=== PATIENT | female | born 1955 | race Caucasian/White ===

== ENCOUNTER 2024-07-12 05:07 | Inpatient (IN) | payer MEDICARE, MEDICAID, SELFPAY ==
[2024-07-12] VITALS (19 sets, daily range): BP systolic 107–164; BP diastolic 48–82; PULSE 71–101; RESP 16–93; TEMP 36.7–38.2; O2SAT 92–100; BMI 17.7; BMI 17.2; BMI 16.0
--- NOTE | 2024-07-12 05:28 | PD.EDRME ---
Rapid Medical Screening Exam RME Arrival date/time: 07/12/24 05:07 68 yo f present to ED for c/o of feeling sick for 10 days. I have greeted and performed a focused initial assessment of this patient. A comprehensive ED assessment and evaluation of the patient, analysis of all test results, and completion of the medical decision making process will be conducted by additional ED providers. Chief Complaint: General Adult/Misc Complain Time Seen by Provider: 07/12/24 05:21 Vital signs: Vital Signs Temperature 98.2 F 07/12/24 05:15 Respiratory Rate 19 07/12/24 05:15 Blood Pressure 162/52 H 07/12/24 05:15
--- NOTE | 2024-07-12 05:29 | XR_ITS ---
Examination: PA lateral chest 2 views Technique: Upright PA lateral chest 2 views Exam date and time: July 06 16,025 0539 hrs. 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
--- NOTE | 2024-07-12 07:04 | PC.NURSE ---
REPORT RECEIVED AT THIS TIME; PER REPORT, PT BIBA WITH INITIAL C/O WANTING TO GET AWAY FROM HOME. UPON TRIAGE, SHE REPORTED HEARING VOICES. PT SEEN BY PROVIDER AND NEEDED A ROOM DUE TO XRAY RESULTS. PT CONNECTED TO MONITORS AT THIS TIME.
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
--- NOTE | 2024-07-12 07:24 | PC.NURSE ---
RT CALLED AND MADE AWARE OF MD'S ORDER FOR BREATHING TREATMENT AT THIS TIME. PER RT, WILL GO SEE PT SOON.
[2024-07-12 07:25] LABS: Lactate (Lactic Acid) 1.3 mMol/L (0.4-2.0)
[2024-07-12 07:28] LABS: Basophils # (Auto) 0.1 Thou/mm3 (0.0-0.2); Basophils % (Auto) 1 % (0-2.5); Eosinophils # (Auto) 0.1 Thou/mm3 (0.0-0.5); Eosinophils % (Auto) 1 % (0-10); Hematocrit 45.9 % (36.0-46.0); Hemoglobin 14.3 g/dL (12.0-16.0); Immature Granulocytes % (Auto) 1 % (0-0); Immature Granulocytes Auto 0.09 Thou/mm3 (0.00-0.00); Lymphocytes # (Auto) 0.6 Thou/mm3 (1.0-4.8); Lymphocytes % (Auto) 5 % (10-50); Mean Corpuscular HGB Conc 31.2 g/dl (31.0-37.0); Mean Corpuscular Hemoglobin 28.7 pg (25.0-35.0); Mean Corpuscular Volume 92 fL (80-100); Monocytes # (Auto) 0.7 Thou/mm3 (0.0-0.8); Monocytes % (Auto) 6 % (0-12); Neutrophils # (Auto) 10.7 Thou/mm3 (1.8-7.7); Neutrophils % (Auto) 87 % (37-80); Nucleated Red Blood Cell % 0 /100 WBC (0); Platelet Count 232 Thou/mm3 (140-440); RDW Standard Deviation 53.9 fL (36.4-46.3); Red Blood Count 4.98 Miln/mm3 (4.00-5.20); White Blood Count 12.2 Thou/mm3 (3.6-11.0)
[2024-07-12 07:35] LABS: Base Excess, Venous 4 (-3-3); O2 Saturation, Venous 81 % (96-97); PCO2, Venous 43 mmHg (36-56); PO2, Venous 39 mmHg (15-58); pH, Venous 7.44 (7.33-7.66)
[2024-07-12] MEDS: IPRATROPIUM RT 0.5 MG/ 2.5 ML NEBU INH (07:36)
[2024-07-12] MEDS: ALBUTEROL RT 2.5 MG/0.5 ML NEBU 10 MG INH (07:36)
[2024-07-12 07:54] LABS: Alanine Aminotransferase 27 U/L (10-49); Albumin, Serum 4.5 gm/dL (3.4-4.8); Albumin/Globulin Ratio 1.2 (1.2-2.2); Alkaline Phosphatase 147 U/L (46-116); Anion Gap 7 (7-16); Aspartate Amino Transferase 17 U/L (0-34); BUN/Creatinine Ratio 18 Ratio (12-20); Bilirubin,Total 0.5 mg/dL (0.3-1.2); Blood Urea Nitrogen 20 mg/dL (9-23); Carbon Dioxide 31.7 mMol/L (20.0-31.0); Chloride 95 mMol/L (98-107); Creatinine (Component) 1.1 mg/dL (0.6-1.3); Estimated Creatinine Clearance 38.6 mL/min (>60); Globulin 3.9 gm/dL (2.3-3.5); Glucose 106 mg/dL (74-106); Magnesium 2.1 mg/dL (1.6-2.6); Osmolality,Calculated 270 (275-295); Potassium 4.2 mMol/L (3.4-5.1); Procalcitonin 0.32 ng/ml (0.0-0.49); Sodium 134 mMol/L (136-145); Total Protein 8.4 gm/dL (5.7-8.2); Troponin I < 0.020 ng/mL (0.0-0.045); eGFR 55 See Note
[2024-07-12 08:03] LABS: B-Type Natriuretic Peptide 75 pg/mL (0-100)
[2024-07-12] MEDS: MethylPREDNISolone SOD SUCC 62.5 MG/ML 2ML VIAL 125 MG IVP (08:10)
[2024-07-12] MEDS: cefTRIAXone/D5w 1gm IV premix 50 ML IV (08:12)
[2024-07-12] MEDS: AZITHROMYCIN INJ 500 MG in SODIUM CHLORIDE 0.9% 250 ML 250 ML 250 MG IV (09:08)
--- NOTE | 2024-07-12 09:13 | XR_ITS ---
Examination: CT chest with intravenous contrast CT abdomen with intravenous contrast CT pelvis with intravenous contrast 2-D coronal and sagittal reconstructions Time of exam: July 12, 2024 1001 hrs. Indications: Difficulty breathing this week, extensive infiltrate in the right lung and masslike area in the right upper lobe on chest x-ray today CTDI: vol (mGy) : 8.47 DLP: (mGycm): 330 Technique: Multiple axial images of the chest, abdomen and pelvis with intravenous contrast, 3.0 mm slice thickness. Images obtained post intravenous injection Isovue 370 60 cc. 2-D sagittal and coronal reconstructions. Low dose protocols were performed. One or more of the following dose reduction techniques were used; automated exposure control, adjustment of the mA and/or KV according to patient size, use of iterative reconstruction technique. Findings: No thoracic aortic aneurysm dilatation Pulmonary artery segments are not enlarged No filling defects in the pulmonary arteries on this non-CTA study Extensive dense right lung opacity most consistent with pneumonia Discrete pulmonary mass in the right upper lobe is not depicted Nodular opacities to a lesser extent throughout the left lung Hyperexpansion No visualized splenic lesion 10 mm low-density posterior right lobe liver lesion image 127 Multiple gallstones Gallbladder wall does not appear thickened Common bile duct 7 mm no stones noted Severely atrophic right kidney with focal areas of probable edema No hydronephrosis or ureteral calculi Aorta normal size No bowel obstruction No pericecal inflammatory change No diverticulitis Minimal thickening of the urinary bladder wall No pelvic mass Prominent osteopenia with kyphosis dorsal spine secondary to chronic osteoporotic wedging dorsal vertebral bodies Advanced left hip osteoarthritis Impression: COPD Bilateral pneumonia, extensive dense lung opacities in the right upper lobe, although this may represent severe pneumonia, underlying pulmonary mass cannot be excluded Consider bronchoscopy follow-up Recommend follow-up CT chest imaging to document clearing of the severe parenchymal disease in the right upper lobe Recommend hepatic sonography to assess the 2 mm low-density lesion posterior right lobe liver Cholelithiasis, negative for cholecystitis Common bile duct 7 mm no stones Severely atrophic right kidney, suspicious for right pyelonephritis, clinical correlation advised No bowel obstruction Mild cystitis pattern Advanced left hip osteoarthritis
[2024-07-12] MEDS: ACETAMINOPHEN 500 MG TABLET 1000 MG PO (10:45)
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
[2024-07-12 11:10] LABS: Collection Type, Urine Clean Catch
--- NOTE | 2024-07-12 11:20 | PC.NURSE ---
PER DR. GOLD, PT OK TO EAT AT THIS TIME. PT GIVEN TURKEY SANDWICH, ELIZA CRACKERS, A CUP OF WATER, AND A ORANGE JUICE BOX AT THIS TIME.
[2024-07-12 11:53] LABS: Bilirubin,Urine Negative (Negative); Blood,Urine Trace (Negative); Clarity,Urine Clear (Clear/Hazy); Color,Urine Yellow (Lt Yel-Yel); Glucose, Urine Negative (Negative); Ketones,Urine Negative (Negative); Leukocyte Esterase,Urine Positive (Negative); Nitrite,Urine Negative (Negative); PH,Urine 6.5 (5.0-7.0); Protein,Urine 2+ (Neg - Trace); RBC,Urine 7 /hpf (0-3); Specific Gravity,Urine 1.034 (1.001-1.035); Squamous Epithelial Cell,Urine 2 /hpf (0-5); Urobilinogen,Urine Negative mg/dL (0.0-1.0); WBC,Urine 10 /hpf (0-5)
[2024-07-12] MEDS: SODIUM CHLORIDE 0.9% 1000 ML 1,000 ML 999 ML IV (12:40)
[2024-07-12] MEDS: SODIUM CHLORIDE 0.9% 1000 ML 1,000 ML 150 ML IV (12:40)
[2024-07-12] MEDS: SODIUM CHLORIDE 0.9% 1000 ML 1,000 ML 75 ML IV (13:32)
--- NOTE | 2024-07-12 14:13 | PC.RT ---
Sputum- patient refusing to leave a sample. Per patient she does not want to be bothered. Nurse aware.
--- NOTE | 2024-07-12 14:23 | ESHP_ITS ---
<Statement entered by Latonia Lock MD - 07/18/24 13:40> I reviewed above note and agree with findings and plans. I have also personally examined the patient with medicine team and went over assessment and plan with medical team including promotions intern and resident physician. Documentation for date of: 07/12/24 HPI History of Present Illness History of present illness: Ms. Hameed is a 68-year-old female with past medical history significant for asthma, hypertension and history of leukemia presents to the ED complaining of flulike symptoms for the past 2 weeks. Of note patient is a poor historian. patient states she lives with other people in the same house (not a senior care) where everyone is responsible further on food and living. Patient complains of fever, chills and productive cough for the past 2 weeks which has progressively worsened. Patient is not on home oxygen. Patient states she also has not had much of food in the last several weeks because she was unable to find food. Patient complains of pleuritic chest pain with inspiration. As patient is a poor historian she is unable to confirm if she has been having hemoptysis for the past 2 years or the last hemoptysis for her was 2 years ago. patient also has been feeling nauseous but denies any vomiting, abdominal pain or diarrhea. Patient states she also has had off and on dysuria for several months but denies any hematuria . Patient states that 2 years ago she was diagnosed with colon cancer but never seek treatments she also states she has history of leukemia since the age of 33 and refuses treatment as well .patient is aware of the lung mass but is unsure of the liver mass found on CT on 01/27/2021. Patient denies any recent weight loss but attributes to her body habitus to not eating enough because she cannot find food. ED course: In the ED initial vitals include blood pressure 162/52, respirations 22 pulse 96. WBC 12.2, sodium 134, urinalysis showed leukocyte esterase positive, urine RBC 7, urine WBC 10 Chest x-ray: COPD, Diffuse significant bilateral pneumonia, Mass in the right upper lobe contiguous with the right hilar region at least 5cm Chest/abdomen/pelvis CT: COPD, Bilateral pneumonia, extensive dense lung opacities in the right upper lobe, although this may represent severe pneumonia, underlying pulmonary mass cannot be excluded severe parenchymal disease in the right upper lobe 2 mm low-density lesion posterior right lobe liver, Cholelithiasis, negative for cholecystitis, Common bile duct 7 mm no stones, Severely atrophic right kidney, suspicious for right pyelonephritis, Mild cystitis pattern, Advanced left hip osteoarthritis -In the ED patient received Solu-Medrol 125 Mg x 1, albuterol 10 Mg inhaler, ipratropium 0.5 mg inhaler, ceftriaxone 1 g x 1, azithromycin 500 Mg x 1 3L NS PMH: HTN, Asthma, leukemia (unknown type and confirmation) PSH: NKSH SH: Patient denies alcohol use, patient smokes meth and last meth use was approximately 1 month ago, former smoker (last cigarette was a year ago) Home Meds: Amlodipine 10 Mg daily and albuterol inhaler Review of Systems Review of Systems Systems Reviewed: All systems reviewed, normal except as documented Exam Vital Signs Temp Pulse Resp BP Pulse Ox O2 Del Method O2 Flow Rate 100.0 F 91 19 132/54 H 92 L Nasal Cannula 2 07/12/24 12:06 07/12/24 12:06 07/12/24 12:06 07/12/24 12:06 07/12/24 12:06 07/12/24 12:06 07/12/24 12:06 Narrative Exam GENERAL: A&Ox3 . Awake, Not in acute distress NEURO: no focal neurological deficits HEENT: Atraumatic, Normocephalic. mucous membranes moist. Eyes open, symmetrical, & clear HEART: Normal Heart Sounds LUNGS: decreased breath sounds with bilateral faint wheezing ABDOMEN: soft, non-distended, non-tender, bowel sounds heard, no guarding or rebound tenderness SKIN: severely dry scaly skin bilaterally on lower extremities EXTREMITIES: No edema, tenderness, able to move all 4 extremities, pedal pulses palpated Results: Labs 07/12/24 07:06 07/13/24 06:24 Labs: Short CBC 07/12/24 Range/Units 07:06 WBC 12.2 H (3.6-11.0) Thou/mm3 Hgb 14.3 (12.0-16.0) g/dL Hct 45.9 (36.0-46.0) % Plt Count 232 (140-440) Thou/mm3 BMP 07/12/24 07:06 Sodium 134 L Potassium 4.2 Chloride 95 L Carbon Dioxide 31.7 H BUN 20 Creatinine 1.1 Glucose 106 Calcium 10.0 Cardiac Enzymes 07/12/24 Range/Units 07:06 Troponin I < 0.020 (0.0-0.045) ng/mL Liver Function 07/12/24 Range/Units 07:06 Total Bilirubin 0.5 (0.3-1.2) mg/dL AST 17 (0-34) U/L ALT 27 (10-49) U/L Alkaline Phosphatase 147 H (46-116) U/L Albumin 4.5 (3.4-4.8) gm/dL Urine 07/12/24 Range/Units 10:41 Urine Color Yellow (Lt Yel-Yel) Urine Clarity Clear (Clear/Hazy) Urine pH 6.5 (5.0-7.0) Ur Specific [place] 1.034 (1.001-1.035) Urine Protein 2+ A (Neg - Trace) Urine Glucose (UA) Negative (Negative) ABG Interpretation ABG results: 07/12/24 07:06 VBG pH 7.44 VBG pCO2 43 VBG pO2 39 VBG Base Excess 4 H Quality Measures Quality Measures none Advance care planning discussed with:: patient Medications Home Medications and Allergies Home Medications ?Medication ?Instructions ?Recorded ?Confirmed ?Type fluticasone propionate 110 2 puff inhalation BID PRN 02/14/20 01/28/21 History mcg/actuation HFA aerosol inhaler Shortness Of Breath Or Wheezing (Flovent HFA) montelukast 10 mg tablet 10 mg PO QPM 02/14/20 01/28/21 History Allergies Allergy/AdvReac Type Severity Reaction Status Date / Time Penicillins Allergy Severe HIVES Verified 07/12/24 05:22 Visit Medications Acetaminophen (Acetaminophen 325 Mg Tablet) 650 mg PO Q6H PRN PRN Reason: Fever >101.5 Stop: 08/11/24 13:23 Albuterol/Ipratropium (Albuterol/Ipratropium (Duoneb) Rt Mariam 3 Ml Nebu) 3 ml INH Q6HRRT LORRI Stop: 08/11/24 18:59 Enoxaparin Sodium (Enoxaparin Sod Inj 40 Mg/0.4 Ml Syringe) 40 mg SC QDAY LORRI Stop: 07/27/24 08:59 Doxycycline Hyclate 100 mg/ (Sodium Chloride) 100 mls @ 100 mls/hr IV BID LORRI Stop: 07/19/24 20:59 Ceftriaxone Sodium/Dextrose (Rocephin/D5w 1gm Iv Premix) 50 mls @ 100 mls/hr IV QDAY [facility] Stop: 07/20/24 08:59 Ondansetron HCl (Ondansetron Inj 2 Mg/Ml Inj 2 Ml) 4 mg IV Q6H PRN; Protocol PRN Reason: NAUSEA OR VOMITING Stop: 08/11/24 13:23 Pantoprazole Sodium (Pantoprazole 40 Mg Tablet) 40 mg PO QDAY [facility] Stop: 08/12/24 08:59 Discontinued Medications Acetaminophen (Acetaminophen 500 Mg Tablet) 1,000 mg PO X1 ONE Stop: 07/12/24 10:34 Last Admin: 07/12/24 10:45 Dose: 1,000 mg Albuterol (Albuterol Rt 2.5 Mg/0.5 Ml Nebu) 10 mg INH X1 ONE Stop: 07/12/24 07:20 Last Admin: 07/12/24 07:36 Dose: 10 mg Albuterol/Ipratropium (Albuterol/Ipratropium (Duoneb) Rt Mariam 3 Ml Nebu) 3 ml INH Q6H [facility] Stop: 08/11/24 13:44 Ceftriaxone Sodium/Dextrose (Rocephin/D5w 1gm Iv Premix) 50 mls @ 100 mls/hr IV X1 ONE Stop: 07/12/24 07:50 Last Infusion: 07/12/24 09:00 Dose: Infused Azithromycin 500 mg/ Sodium (Chloride) 250 mls @ 250 mls/hr IV X1 ONE Stop: 07/12/24 08:20 Last Infusion: 07/12/24 10:40 Dose: Infused Sodium Chloride (Ns) 1,000 mls @ 150 mls/hr IV .[id number] ONE Stop: 07/12/24 19:14 Last Infusion: 07/12/24 13:31 Dose: 0 mls/hr Sodium Chloride (Ns) 1,000 mls @ 999 mls/hr IV .Q1H1M ONE Stop: 07/12/24 13:35 Last Admin: 07/12/24 12:40 Dose: 999 mls/hr Sodium Chloride (Ns) 1,000 mls @ 75 mls/hr IV .[id number] LORRI Stop: 08/11/24 13:29 Last Admin: 07/12/24 13:32 Dose: 75 mls/hr Ipratropium [place] (Ipratropium Rt 0.5 Mg/ 2.5 Ml Nebu) 0.5 mg INH X1 ONE Stop: 07/12/24 07:20 Last Admin: 07/12/24 07:36 Dose: 0.5 mg Methylprednisolone Sodium Succinate (Methylprednisolone Sod Succ 62.5 Mg/Ml 2ml Vial) 125 mg IVP X1 ONE Stop: 07/12/24 07:20 Last Admin: 07/12/24 08:10 Dose: 125 mg Sodium Chloride (Sodium Chloride Rt 10% 15 Ml Nebu) 5 ml INH X1 ONE Stop: 07/12/24 13:36 Assessment & Plan Plan Ms. Hameed is a 68-year-old female with past medical history significant for asthma, hypertension and history of leukemia presents to the ED complaining of flulike symptoms for the past 2 weeks.Patient complains of fever, chills and productive cough for the past 2 weeks which has progressively worsened. Patient is not on home oxygen. Patient states she also has not had much of food in the last several weeks because she was unable to find food. Patient complains of pleuritic chest pain with inspiration. As patient is a poor historian she is unable to confirm if she has been having hemoptysis for the past 2 years or the last hemoptysis for her was 2 years ago. patient also has been feeling nauseous but denies any vomiting, abdominal pain or diarrhea. Patient states she also has had off and on dysuria for several months but denies any hematuria . Patient states that 2 years ago she was diagnosed with colon cancer but never seek treatments she also states she has history of leukemia since the age of 33 and refuses treatment as well .patient is aware of the lung mass but is unsure of the liver mass found on CT on 01/27/2021. Patient denies any recent weight loss but attributes to her body habitus to not eating enough because she cannot find food. #Acute hypoxic respiratory failure #Sepsis secondary to #Bilateral pneumonia #Hemoptysis-unclear # Concern for tuberculosis -SIRS 3/4- tachycardia, tachypnea and leukocytosis -In the ED patient is requiring 2 L of oxygen saturating between 87 and 88% -Patient has a cough and unsure if she currently has hemoptysis for the last 2 years or if the last hemoptysis episode was 2 years ago patient is a poor historian -Patient complains of productive cough, weight loss and fever -Patient lives in a senior care situation -Patient is given 3 L of IV fluid in the ED Plan: -Patient is placed in airborne isolation precaution -AFB, QuantiFERON, PPD skin and sputum culture were ordered -Blood cultures are ordered -Cocci IgM ordered -Antibiotics coverage with doxycycline and ceftriaxone started 07/12- -IV fluids given #COPD exacerbation in the setting of #History of asthma -Patient has history of asthma and uses albuterol inhaler at home -Patient has faint wheezing on auscultation -Patient denies any smoking history but currently is requiring 2 L of oxygen Plan: -Supplemental oxygen as needed, keep O2 saturation above 88% -DuoNebs every 6 hours ordered #Acute pyelonephritis #Cystitis #Pyuria #hematuria -Pt complains of dysuria for several weeks, denies any abdominal pain or difficulty urinating -UA is postive for leukocyte esterase, urine RBC 7, urine WBC 10, urine blood trace CT: Minimal thickening of the urinary bladder wall, Severely atrophic right kidney, suspicious for right pyelonephritis Plan: -Antibiotics coverage with ceftriaxone 07/12- #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 bilaterally on lower extremities -Patient is advised to keep it moisturized #Primary hypertension Patient states her home medication includes amlodipine 10 mg daily however she stopped taking it several months ago -Will continue to monitor blood pressure and will resume antihypertensive if blood pressure remains elevated # other CT and Xray findings -Liver mass: 10 mm low-density posterior right lobe liver lesion image 127 -Lung mass: Mass in the right upper lobe contiguous with the right hilar region at least 5cm -Enlarged common bile duct: Common bile duct 7 mm no stones noted -Cholelithiasis: Cholelithiasis, negative for cholecystitis -Advanced osteoarthritis of the right hip Plan: -Patient is advised to follow-up outpatient with primary care physician #substance use disorder -Patient endorses to smoking meth last meth use was approximately a month ago -Counseled patient against drug use # Unconfirmed history of colon cancer and leukemia -Patient states she has a history of colon cancer and leukemia but it is unverified on chart review -Patient also declined receiving any treatments for either one of them Health Maintenance Disposition: Medsurg or telemetry DVT Prophylaxis: enoxaparin 40mg Qdaily GI Prophylaxis: Pantoprozol-40 IV Qday Diet: regular Lines: Peripheral lines Code status: Full Assessment and plan discussed with my attending physician Dr. Ashvin Vaz (PGY-1)- Internal medicine resident
--- NOTE | 2024-07-12 18:28 | PC.NURSE ---
MERCHANDISING SPECIALIST CALLED AT THIS TIME; UNAVAILABLE TO PERFORM TB PPD SKIN TEST AT THIS TIME.
[2024-07-12] MEDS: TUBERCULIN PPD INJ 5 UNIT/0.1 ML DOSE ID (19:27)
[2024-07-12] MEDS: DOXYCYCLINE INJ 100 MG in SODIUM CHLORIDE 0.9% (P) 100 ML IV (21:20)
[2024-07-13] VITALS (9 sets, daily range): BP systolic 98–151; BP diastolic 61–79; PULSE 69–99; RESP 17–21; TEMP 36.1–37.3; O2SAT 92–100; BMI 14.0
[2024-07-13] MEDS: ALBUTEROL/IPRATROPIUM (Duoneb) RT SOL 3 ML NEBU INH ×3 (01:35→12:39)
[2024-07-13 01:42] LABS: Cult AFB Sendout- Sputum* See Sep Rpt
[2024-07-13 06:37] LABS: Quantiferon-TB* See Sep Rpt
[2024-07-13 07:08] LABS: Alanine Aminotransferase 29 U/L (10-49); Albumin, Serum 4.2 gm/dL (3.4-4.8); Albumin/Globulin Ratio 1.1 (1.2-2.2); Alkaline Phosphatase 133 U/L (46-116); Anion Gap 9 (7-16); Aspartate Amino Transferase 22 U/L (0-34); BUN/Creatinine Ratio 23 Ratio (12-20); Bilirubin,Total 0.2 mg/dL (0.3-1.2); Blood Urea Nitrogen 28 mg/dL (9-23); Calcium 9.4 mg/dL (8.3-10.6); Calcium (Corrected) 9.4 mg/dL (8.5-10.1); Carbon Dioxide 28.6 mMol/L (20.0-31.0); Chloride 100 mMol/L (98-107); Creatinine (Component) 1.2 mg/dL (0.6-1.3); Globulin 3.7 gm/dL (2.3-3.5); Glucose 93 mg/dL (74-106); Magnesium 2.1 mg/dL (1.6-2.6); Osmolality,Calculated 281 (275-295); Phosphorous 3.2 mg/dL (2.4-5.1); Potassium 4.8 mMol/L (3.4-5.1); Sodium 138 mMol/L (136-145); Total Protein 7.9 gm/dL (5.7-8.2); eGFR 49 See Note
[2024-07-13 09:06] LABS: Basophils % (Auto) 0 % (0-2.5); Eosinophils % (Auto) 0 % (0-10); Hematocrit 44.2 % (36.0-46.0); Hemoglobin 13.4 g/dL (12.0-16.0); Immature Granulocytes % (Auto) 1 % (0-0); Immature Granulocytes Auto 0.12 Thou/mm3 (0.00-0.00); Lymphocytes # (Auto) 0.6 Thou/mm3 (1.0-4.8); Lymphocytes % (Auto) 4 % (10-50); Mean Corpuscular HGB Conc 30.3 g/dl (31.0-37.0); Mean Corpuscular Hemoglobin 28.1 pg (25.0-35.0); Mean Corpuscular Volume 93 fL (80-100); Monocytes # (Auto) 0.4 Thou/mm3 (0.0-0.8); Monocytes % (Auto) 3 % (0-12); Neutrophils # (Auto) 12.7 Thou/mm3 (1.8-7.7); Neutrophils % (Auto) 92 % (37-80); Nucleated Red Blood Cell % 0 /100 WBC (0); Platelet Count 243 Thou/mm3 (140-440); RDW Standard Deviation 55.2 fL (36.4-46.3); Red Blood Count 4.77 Miln/mm3 (4.00-5.20); White Blood Count 13.8 Thou/mm3 (3.6-11.0)
[2024-07-13 09:20] LABS: Cult AFB Sendout- Sputum* See Sep Rpt
[2024-07-13] MEDS: PANTOPRAZOLE 40 MG TABLET PO (09:49)
[2024-07-13] MEDS: ENOXAPARIN SOD INJ 40 MG/0.4 ML SYRINGE SC (09:49)
[2024-07-13] MEDS: cefTRIAXone/D5w 1gm IV premix 50 ML IV (09:49)
[2024-07-13] MEDS: DOXYCYCLINE INJ 100 MG in SODIUM CHLORIDE 0.9% (P) 100 ML IV ×2 (10:51→21:05)
--- NOTE | 2024-07-13 11:31 | PC.SS ---
Follow up note: On IV antibiotic. TB work up pending. Pt will return home upon dc.
--- NOTE | 2024-07-13 13:20 | PC.PT ---
Attempt to initiate PT evaluation, but patient refused inspite of education of the importance of doing PT but patient still refused. Will try again tomorrow.
[2024-07-13 14:51] LABS: Cocci Serology, IgM Positive (Negative)
[2024-07-13 14:53] LABS: Cocid Sro, CF/ID (UCD) NO CHG* See Sep Rpt
[2024-07-13] MEDS: FLUCONAZOLE 100 MG TABLET 400 MG PO (15:28)
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
[2024-07-14] VITALS (8 sets, daily range): BP systolic 120–157; BP diastolic 56–74; PULSE 67–88; RESP 17–24; TEMP 36.4–37.1; O2SAT 94–100; BMI 15.0
[2024-07-14] MEDS: ALBUTEROL/IPRATROPIUM (Duoneb) RT SOL 3 ML NEBU INH (06:35)
[2024-07-14 06:42] LABS: Basophils % (Auto) 0 % (0-2.5); Eosinophils % (Auto) 0 % (0-10); Hematocrit 43.7 % (36.0-46.0); Hemoglobin 13.4 g/dL (12.0-16.0); Immature Granulocytes % (Auto) 2 % (0-0); Immature Granulocytes Auto 0.17 Thou/mm3 (0.00-0.00); Lymphocytes # (Auto) 1.2 Thou/mm3 (1.0-4.8); Lymphocytes % (Auto) 12 % (10-50); Mean Corpuscular HGB Conc 30.7 g/dl (31.0-37.0); Mean Corpuscular Hemoglobin 28.5 pg (25.0-35.0); Mean Corpuscular Volume 93 fL (80-100); Monocytes # (Auto) 0.5 Thou/mm3 (0.0-0.8); Monocytes % (Auto) 5 % (0-12); Neutrophils # (Auto) 8.8 Thou/mm3 (1.8-7.7); Neutrophils % (Auto) 82 % (37-80); Nucleated Red Blood Cell % 0 /100 WBC (0); Platelet Count 267 Thou/mm3 (140-440); RDW Standard Deviation 55.2 fL (36.4-46.3); Red Blood Count 4.71 Miln/mm3 (4.00-5.20); White Blood Count 10.8 Thou/mm3 (3.6-11.0)
[2024-07-14 07:20] LABS: Alanine Aminotransferase 46 U/L (10-49); Albumin, Serum 3.9 gm/dL (3.4-4.8); Albumin/Globulin Ratio 1.1 (1.2-2.2); Alkaline Phosphatase 131 U/L (46-116); Anion Gap 10 (7-16); Aspartate Amino Transferase 43 U/L (0-34); BUN/Creatinine Ratio 23 Ratio (12-20); Bilirubin,Total 0.2 mg/dL (0.3-1.2); Blood Urea Nitrogen 25 mg/dL (9-23); Calcium 9.3 mg/dL (8.3-10.6); Calcium (Corrected) 9.4 mg/dL (8.5-10.1); Carbon Dioxide 27.2 mMol/L (20.0-31.0); Chloride 101 mMol/L (98-107); Creatinine (Component) 1.1 mg/dL (0.6-1.3); Globulin 3.4 gm/dL (2.3-3.5); Glucose 80 mg/dL (74-106); Magnesium 1.8 mg/dL (1.6-2.6); Osmolality,Calculated 279 (275-295); Phosphorous 3.4 mg/dL (2.4-5.1); Sodium 138 mMol/L (136-145); Total Protein 7.3 gm/dL (5.7-8.2); eGFR 55 See Note
--- NOTE | 2024-07-14 08:52 | PC.NURSE ---
[facility] down[facility] on 07/14/24 from 0100 to 0700.
--- NOTE | 2024-07-14 10:00 | PC.NURSE ---
[facility]24 from 0100 to 0700.
[2024-07-14] MEDS: FLUCONAZOLE 100 MG TABLET 400 MG PO (10:18)
[2024-07-14] MEDS: PANTOPRAZOLE 40 MG TABLET PO (10:19)
[2024-07-14] MEDS: DOXYCYCLINE INJ 100 MG in SODIUM CHLORIDE 0.9% (P) 100 ML IV ×2 (10:19→21:32)
[2024-07-14] MEDS: ENOXAPARIN SOD INJ 40 MG/0.4 ML SYRINGE SC (10:19)
[2024-07-14] MEDS: cefTRIAXone/D5w 1gm IV premix 50 ML IV (10:19)
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
[2024-07-14] MEDS: ALBUTEROL/IPRATROPIUM (Duoneb) RT SOL 3 ML NEBU 5 ML INH ×2 (13:00→21:03)
[2024-07-14] MEDS: guaiFENesin/DM 10 ML UDC PO ×2 (13:03→21:32)
--- NOTE | 2024-07-14 16:42 | ESPR_ITS ---
Documentation for date of: 07/14/24 Subjective Subjective Interval history: 07/14: no acute overnight events. pt is seen and examined at bedside. Pt is in airborne precaution isolation for TB rule out. pt is resting, somnolent. Patient is saturating well on 3 L of oxygen via nasal cannula. Patient has a new productive cough which she states is because of her asthma flare denies any fever or chills. Patient denies any nausea vomiting or chest pain. Patient states she is just very tired and sleepy. Exam Vital Signs Temp Pulse Resp BP Pulse Ox O2 Del Method O2 Flow Rate 98.8 F 73 18 124/62 96 Nasal Cannula 2 07/14/24 16:00 07/14/24 16:00 07/14/24 16:00 07/14/24 16:29 07/14/24 16:00 07/14/24 16:00 07/14/24 16:00 Narrative Exam GENERAL: A&Ox3 . Awake, Not in acute distress NEURO: no focal neurological deficits HEENT: Atraumatic, Normocephalic. mucous membranes moist. Eyes open, symmetrical, & clear HEART: Normal Heart Sounds LUNGS: bilaterallly wheezing on auscultation ABDOMEN: soft, non-distended, non-tender, bowel sounds heard, no guarding or rebound tenderness SKIN: severely dry scaly skin bilaterally on lower extremities EXTREMITIES: No edema, tenderness, able to move all 4 extremities, pedal pulses palpated Objective Labs 07/15/24 08:11 07/15/24 08:11 Labs: Laboratory Results - last 24 hr 07/14/24 05:24 WBC 10.8 RBC 4.71 Hgb 13.4 Hct 43.7 MCV 93 MCH 28.5 MCHC 30.7 L RDW Std Deviation 55.2 H Plt Count 267 Neut % (Auto) 82 H Lymph % (Auto) 12 [place] % (Auto) 5 Eos % (Auto) 0 Baso % (Auto) 0 Neut # (Auto) 8.8 H Lymph # (Auto) 1.2 [place] # (Auto) 0.5 Eos # (Auto) 0.0 Baso # (Auto) 0.0 Immature Gran # (Auto) 0.17 H Absolute Nucleated RBC 0.00 Immature Gran % 2 H Nucleated RBC % 0 Sodium 138 Potassium 4.0 D Chloride 101 Carbon Dioxide 27.2 Anion Gap 10 BUN 25 H Creatinine 1.1 Estim Creat Clear Calc 36.0 L eGFR 55 L BUN/Creatinine Ratio 23 H Glucose 80 Calculated Osmolality 279 Calcium 9.3 Corrected Calcium 9.4 Phosphorus 3.4 Magnesium 1.8 Total Bilirubin 0.2 L AST 43 H ALT 46 Alkaline Phosphatase 131 H Total Protein 7.3 Albumin 3.9 Globulin 3.4 Albumin/Globulin Ratio 1.1 L ABG Interpretation ABG results: 07/12/24 07:06 VBG pH 7.44 VBG pCO2 43 VBG pO2 39 VBG Base Excess 4 H Quality Measures Quality Measures none Advance care planning discussed with:: patient Assessment & Plan Assessment Current Active Medications: Generic Name Dose Route Start Last Admin Trade Name Freq PRN Reason Stop Dose Admin Acetaminophen 650 mg 07/13/24 11:58 Acetaminophen 325 Mg Tablet PO 08/11/24 13:23 Q6H PRN Fever >100.3 Albuterol/Ipratropium 5 ml 07/14/24 13:00 07/14/24 13:00 Albuterol/Ipratropium (Duoneb) Rt Mariam 3 Ml Nebu INH 08/13/24 12:59 5 ml Q6HRRT LORRI Administration Amlodipine Besylate 10 mg 07/14/24 10:45 07/14/24 13:11 Amlodipine Besylate 5 Mg Tablet PO 08/13/24 10:44 Not Given QDAY LORRI Enoxaparin Sodium 40 mg 07/13/24 09:00 07/14/24 10:19 Enoxaparin Sod Inj 40 Mg/0.4 Ml Syringe SC 07/27/24 08:59 40 mg QDAY LORRI Administration Fluconazole 400 mg 07/13/24 15:15 07/14/24 10:18 Fluconazole 100 Mg Tablet PO 07/20/24 15:14 400 mg QDAY LORRI Administration Guaifenesin/Dextromethorphan 10 ml 07/14/24 14:00 07/14/24 13:03 Guaifenesin/Dm 10 Ml Udc PO 08/13/24 13:59 10 ml TID LORRI Administration Protocol Doxycycline Hyclate 100 mg/ 100 mls @ 100 mls/hr 07/12/24 21:00 07/14/24 10:19 Sodium Chloride IV 07/19/24 20:59 100 mls/hr BID LORRI Administration Ceftriaxone Sodium/Dextrose 50 mls @ 100 mls/hr 07/13/24 09:00 07/14/24 10:19 Rocephin/D5w 1gm Iv Premix IV 07/20/24 08:59 100 mls/hr QDAY LORRI Administration Ondansetron HCl 4 mg 07/12/24 13:24 Ondansetron Inj 2 Mg/Ml Inj 2 Ml IV 08/11/24 13:23 Q6H PRN NAUSEA OR VOMITING Protocol Pantoprazole Sodium 40 mg 07/13/24 09:00 07/14/24 10:19 Pantoprazole 40 Mg Tablet PO 08/12/24 08:59 40 mg QDAY LORRI Administration Plan Ms. Hameed is a 68-year-old female with past medical history significant for asthma, hypertension and history of leukemia presents to the ED complaining of flulike symptoms for the past 2 weeks.Patient complains of fever, chills and productive cough for the past 2 weeks which has progressively worsened. Patient is not on home oxygen. Patient states she also has not had much of food in the last several weeks because she was unable to find food. Patient complains of pleuritic chest pain with inspiration. As patient is a poor historian she is unable to confirm if she has been having hemoptysis for the past 2 years or the last hemoptysis for her was 2 years ago. patient also has been feeling nauseous but denies any vomiting, abdominal pain or diarrhea. Patient states she also has had off and on dysuria for several months but denies any hematuria . Patient states that 2 years ago she was diagnosed with colon cancer but never seek treatments she also states she has history of leukemia since the age of 33 and refuses treatment as well .patient is aware of the lung mass but is unsure of the liver mass found on CT on 01/27/2021. Patient denies any recent weight loss but attributes to her body habitus to not eating enough because she cannot find food. #Acute hypoxic respiratory failure #Sepsis secondary to #Bilateral CAP pneumonia #Hemoptysis-unclear # Concern for tuberculosis # Cocci pneumonia -SIRS 3/4- tachycardia, tachypnea and leukocytosis -In the ED patient is requiring 2 L of oxygen saturating between 87 and 88% -Patient has a cough and unsure if she currently has hemoptysis for the last 2 years or if the last hemoptysis episode was 2 years ago patient is a poor historian -Patient complains of productive cough, weight loss and fever -Patient lives in a penitentiary situation -Patient is given 3 L of IV fluid in the ED Plan: -Patient is placed in airborne isolation precaution -AFB, QuantiFERON, PPD skin and sputum culture were ordered -Blood cultures are 2/2 have no growth after 24 hours -Cocci IgM positive -Fluconazole 400 Mg started 07/13- -Antibiotics coverage with doxycycline and ceftriaxone started 07/12- -IV fluids given #COPD exacerbation in the setting of #History of asthma -Patient has history of asthma and uses albuterol inhaler at home -Patient has faint wheezing on auscultation -Patient denies any smoking history but currently is requiring 2 L of oxygen Plan: -Supplemental oxygen as needed, keep O2 saturation above 88% -DuoNebs every 6 hours ordered #Acute pyelonephritis #Cystitis #Pyuria #hematuria -Pt complains of dysuria for several weeks, denies any abdominal pain or difficulty urinating -UA is postive for leukocyte esterase, urine RBC 7, urine WBC 10, urine blood trace CT: Minimal thickening of the urinary bladder wall, Severely atrophic right kidney, suspicious for right pyelonephritis Plan: -Antibiotics coverage with ceftriaxone 07/12- #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 bilaterally on lower extremities -Patient is advised to keep it moisturized #Primary hypertension Patient states her home medication includes amlodipine 10 mg daily however she stopped taking it several months ago -Resume home amlodipine 10 mg daily # other CT and Xray findings -Liver mass: 10 mm low-density posterior right lobe liver lesion image 127 -Lung mass: Mass in the right upper lobe contiguous with the right hilar region at least 5cm -Enlarged common bile duct: Common bile duct 7 mm no stones noted -Cholelithiasis: Cholelithiasis, negative for cholecystitis -Advanced osteoarthritis of the right hip Plan: -Patient is advised to follow-up outpatient with primary care physician #substance use disorder -Patient endorses to smoking meth last meth use was approximately a month ago -Counseled patient against drug use # Unconfirmed history of colon cancer and leukemia -Patient states she has a history of colon cancer and leukemia but it is unverified on chart review -Patient also declined receiving any treatments for either one of them Health Maintenance Disposition: Medsurg or telemetry DVT Prophylaxis: enoxaparin 40mg Qdaily GI Prophylaxis: Pantoprozol-40 IV Qday Diet: regular Lines: Peripheral lines Code status: Full Assessment and plan discussed with my senior resident Dr. Pacheco & attending physician Dr. Apollo Vaz (PGY-1)- Internal medicine resident Senior resident attestation: Patient evaluated and examined at the bedside, plan of care discussed with rest of the team including my attending physician, except as noted. Tara PGY2 Attending Provider Attestation/Addendum I, Mili Bustillos, DO, attest that I was physically present for the novoa portions of the service and evaluated the patient with the resident and I reviewed and discussed the case with the resident and agree with the resident's findings and plans of care as documented above Patient seen and evaluated this a.m. She states that she is feeling well. She states that she has more productive sputum today. Sputum appears to be thick and brown in color. She denies any worsening or dyspnea. Will send sputum for cultures and AFB's. Patient remains on isolation for TB rule out. She is cocci positive, continue with fluconazole at this time. Patient states that she did not know that she had the liver lesions and the severe parenchymal disease in the right upper lobe, despite being told by current team in the previous days. Moreover, liver lesion was noted by physicians on previous visits. Patient states that she is interested in obtaining a biopsy. She follows up with [facility] outpatient. Recommend the patient have outpatient workup upon discharge.
[2024-07-14] MEDS: ACETAMINOPHEN 325 MG TABLET 650 MG PO (22:46)
[2024-07-15] VITALS (11 sets, daily range): BP systolic 100–144; BP diastolic 56–78; PULSE 66–94; RESP 16–20; TEMP 36.3–37.1; O2SAT 92–99
[2024-07-15] MEDS: ALBUTEROL/IPRATROPIUM (Duoneb) RT SOL 3 ML NEBU 5 ML INH ×4 (01:11→19:06)
--- NOTE | 2024-07-15 01:36 | PC.NURSE ---
Patient's IV discontinued due to swelling and tenderness. Patient is refusing to have a new IV inserted despite multiple attempts. Will try again at a later time.
[2024-07-15] MEDS: cefTRIAXone/D5w 1gm IV premix 50 ML IV (08:33)
[2024-07-15] MEDS: PANTOPRAZOLE 40 MG TABLET PO (08:34)
[2024-07-15] MEDS: FLUCONAZOLE 100 MG TABLET 400 MG PO (08:34)
[2024-07-15] MEDS: amLODIPine BESYLATE 5 MG TABLET 10 MG PO (08:34)
[2024-07-15] MEDS: ENOXAPARIN SOD INJ 40 MG/0.4 ML SYRINGE SC (08:34)
[2024-07-15 09:01] LABS: Basophils % (Auto) 1 % (0-2.5); Eosinophils # (Auto) 0.1 Thou/mm3 (0.0-0.5); Eosinophils % (Auto) 1 % (0-10); Hematocrit 40.6 % (36.0-46.0); Hemoglobin 12.4 g/dL (12.0-16.0); Immature Granulocytes % (Auto) 2 % (0-0); Immature Granulocytes Auto 0.16 Thou/mm3 (0.00-0.00); Lymphocytes # (Auto) 0.9 Thou/mm3 (1.0-4.8); Lymphocytes % (Auto) 14 % (10-50); Mean Corpuscular HGB Conc 30.5 g/dl (31.0-37.0); Mean Corpuscular Hemoglobin 28.4 pg (25.0-35.0); Mean Corpuscular Volume 93 fL (80-100); Monocytes # (Auto) 0.4 Thou/mm3 (0.0-0.8); Monocytes % (Auto) 5 % (0-12); Neutrophils # (Auto) 5.2 Thou/mm3 (1.8-7.7); Neutrophils % (Auto) 77 % (37-80); Nucleated Red Blood Cell % 0 /100 WBC (0); Platelet Count 265 Thou/mm3 (140-440); RDW Standard Deviation 56.6 fL (36.4-46.3); Red Blood Count 4.36 Miln/mm3 (4.00-5.20); White Blood Count 6.7 Thou/mm3 (3.6-11.0)
[2024-07-15 09:45] LABS: Alanine Aminotransferase 37 U/L (10-49); Albumin, Serum 3.7 gm/dL (3.4-4.8); Albumin/Globulin Ratio 1.2 (1.2-2.2); Alkaline Phosphatase 109 U/L (46-116); Anion Gap 6 (7-16); Aspartate Amino Transferase 20 U/L (0-34); BUN/Creatinine Ratio 22 Ratio (12-20); Bilirubin,Total 0.2 mg/dL (0.3-1.2); Blood Urea Nitrogen 22 mg/dL (9-23); Calcium (Corrected) 9.2 mg/dL (8.5-10.1); Carbon Dioxide 32.2 mMol/L (20.0-31.0); Chloride 99 mMol/L (98-107); Estimated Creatinine Clearance 39.6 mL/min (>60); Globulin 3.1 gm/dL (2.3-3.5); Glucose 69 mg/dL (74-106); Magnesium 1.8 mg/dL (1.6-2.6); Osmolality,Calculated 275 (275-295); Phosphorous 3.9 mg/dL (2.4-5.1); Potassium 4.3 mMol/L (3.4-5.1); Sodium 137 mMol/L (136-145); Total Protein 6.8 gm/dL (5.7-8.2); eGFR > 60 See Note
[2024-07-15] MEDS: DOXYCYCLINE INJ 100 MG in SODIUM CHLORIDE 0.9% (P) 100 ML IV ×2 (10:37→21:53)
--- NOTE | 2024-07-15 11:57 | PC.SS ---
Follow up note: Pending AFBs. Pt will return home upon dc.
--- NOTE | 2024-07-15 18:07 | ESPR_ITS ---
Documentation for date of: 07/15/24 Subjective Subjective Interval history: 07/15: No acute overnight events. Patient seen and examined at bedside this morning patient is enjoying her breakfast her cough has improved. She is alert and oriented. Patient has no complaints denies any chest pain shortness of breath or abdominal pain. Patient is still in airborne isolation precaution for TB rule out. Exam Vital Signs Temp Pulse Resp BP Pulse Ox O2 Del Method O2 Flow Rate 98.0 F 78 18 100/59 L 92 L Room Air 2 07/15/24 16:07/15/24 16:07/15/24 16:07/15/24 16:07/15/24 16:07/15/24 16:00 07/15/24 13:33 Narrative Exam GENERAL: A&Ox3 . Awake, Not in acute distress NEURO: no focal neurological deficits HEENT: Atraumatic, Normocephalic. mucous membranes moist. Eyes open, symmetrical, & clear HEART: Normal Heart Sounds LUNGS: bilaterallly wheezing on auscultation ABDOMEN: soft, non-distended, non-tender, bowel sounds heard, no guarding or rebound tenderness SKIN: severely dry scaly skin bilaterally on lower extremities EXTREMITIES: No edema, tenderness, able to move all 4 extremities, pedal pulses palpated Objective Labs 07/15/24 08:11 07/15/24 08:11 Labs: Laboratory Results - last 24 hr 07/13/24 07/15/24 01:34 08:11 WBC 6.7 RBC 4.36 Hgb 12.4 Hct 40.6 MCV 93 MCH 28.4 MCHC 30.5 L RDW Std Deviation 56.6 H Plt Count 265 Neut % (Auto) 77 Lymph % (Auto) 14 Lawrence % (Auto) 5 Eos % (Auto) 1 Baso % (Auto) 1 Neut # (Auto) 5.2 Lymph # (Auto) 0.9 L Lawrence # (Auto) 0.4 Eos # (Auto) 0.1 Baso # (Auto) 0.0 Immature Gran # (Auto) 0.16 H Absolute Nucleated RBC 0.00 Immature Gran % 2 H Nucleated RBC % 0 Sodium 137 Potassium 4.3 Chloride 99 Carbon Dioxide 32.2 H Anion Gap 6 L BUN 22 Creatinine 1.0 Estim Creat Clear Calc 39.6 L eGFR > 60 BUN/Creatinine Ratio 22 H Glucose 69 L Calculated Osmolality 275 Calcium 9.0 Corrected Calcium 9.2 Phosphorus 3.9 Magnesium 1.8 Total Bilirubin 0.2 L AST 20 ALT 37 Alkaline Phosphatase 109 D Total Protein 6.8 Albumin 3.7 Globulin 3.1 Albumin/Globulin Ratio 1.2 Mycobacterial Culture See Sep Rpt ABG Interpretation ABG results: 07/12/24 07:06 VBG pH 7.44 VBG pCO2 43 VBG pO2 39 VBG Base Excess 4 H Quality Measures Quality Measures none Advance care planning discussed with:: patient Assessment & Plan Assessment Current Active Medications: Generic Name Dose Route Start Last Admin Trade Name Freq PRN Reason Stop Dose Admin Acetaminophen 650 mg 07/13/24 11:58 07/14/24 22:46 Acetaminophen 325 Mg Tablet PO 08/11/24 13:23 650 mg Q6H PRN Administration Fever >100.3 Albuterol/Ipratropium 5 ml 07/14/24 13:00 07/15/24 13:30 Albuterol/Ipratropium (Duoneb) Rt Mariam 3 Ml Nebu INH 08/13/24 12:59 5 ml Q6HRRT LORRI Administration Amlodipine Besylate 10 mg 07/14/24 10:45 07/15/24 08:34 Amlodipine Besylate 5 Mg Tablet PO 08/13/24 10:44 10 mg QDAY LORRI Administration Enoxaparin Sodium 40 mg 07/13/24 09:00 07/15/24 08:34 Enoxaparin Sod Inj 40 Mg/0.4 Ml Syringe SC 07/27/24 08:59 40 mg QDAY LORRI Administration Fluconazole 400 mg 07/13/24 15:15 07/15/24 08:34 Fluconazole 100 Mg Tablet PO 07/20/24 15:14 400 mg QDAY LORRI Administration Guaifenesin/Dextromethorphan 10 ml 07/14/24 14:00 07/15/24 14:24 Guaifenesin/Dm 10 Ml Udc PO 08/13/24 13:59 Not Given TID [facility] Protocol Doxycycline Hyclate 100 mg/ 100 mls @ 100 mls/hr 07/12/24 21:00 07/15/24 10:37 Sodium Chloride IV 07/19/24 20:59 100 mls/hr BID LORRI Administration Ceftriaxone Sodium/Dextrose 50 mls @ 100 mls/hr 07/13/24 09:00 07/15/24 08:33 Rocephin/D5w 1gm Iv Premix IV 07/20/24 08:59 100 mls/hr QDAY LORRI Administration Ondansetron HCl 4 mg 07/12/24 13:24 Ondansetron Inj 2 Mg/Ml Inj 2 Ml IV 08/11/24 13:23 Q6H PRN NAUSEA OR VOMITING Protocol Pantoprazole Sodium 40 mg 07/13/24 09:00 07/15/24 08:34 Pantoprazole 40 Mg Tablet PO 08/12/24 08:59 40 mg QDAY LORRI Administration Plan Ms. Hameed is a 68-year-old female with past medical history significant for asthma, hypertension and history of leukemia presents to the ED complaining of flulike symptoms for the past 2 weeks.Patient complains of fever, chills and productive cough for the past 2 weeks which has progressively worsened. Patient is not on home oxygen. Patient states she also has not had much of food in the last several weeks because she was unable to find food. Patient complains of pleuritic chest pain with inspiration. As patient is a poor historian she is unable to confirm if she has been having hemoptysis for the past 2 years or the last hemoptysis for her was 2 years ago. patient also has been feeling nauseous but denies any vomiting, abdominal pain or diarrhea. Patient states she also has had off and on dysuria for several months but denies any hematuria . Patient states that 2 years ago she was diagnosed with colon cancer but never seek treatments she also states she has history of leukemia since the age of 33 and refuses treatment as well .patient is aware of the lung mass but is unsure of the liver mass found on CT on 01/27/2021. Patient denies any recent weight loss but attributes to her body habitus to not eating enough because she cannot find food. #Acute hypoxic respiratory failure #Sepsis secondary to #Bilateral CAP pneumonia #Hemoptysis-unclear # Concern for tuberculosis # Cocci pneumonia -SIRS 3/4- tachycardia, tachypnea and leukocytosis -In the ED patient is requiring 2 L of oxygen saturating between 87 and 88% -Patient has a cough and unsure if she currently has hemoptysis for the last 2 years or if the last hemoptysis episode was 2 years ago patient is a poor historian -Patient complains of productive cough, weight loss and fever -Patient lives in a detention situation -Patient is given 3 L of IV fluid in the ED Plan: -Patient is placed in airborne isolation precaution -AFB, QuantiFERON, PPD skin and sputum culture were ordered -Blood cultures are 2/2 have no growth after 24 hours -Cocci IgM positive -Fluconazole 400 Mg started 07/13- -Antibiotics coverage with doxycycline and ceftriaxone started 07/12- -IV fluids given #COPD exacerbation in the setting of #History of asthma -Patient has history of asthma and uses albuterol inhaler at home -Patient has faint wheezing on auscultation -Patient denies any smoking history but currently is requiring 2 L of oxygen Plan: -Supplemental oxygen as needed, keep O2 saturation above 88% -DuoNebs every 6 hours ordered #Acute pyelonephritis #Cystitis #Pyuria #hematuria -Pt complains of dysuria for several weeks, denies any abdominal pain or difficulty urinating -UA is postive for leukocyte esterase, urine RBC 7, urine WBC 10, urine blood trace CT: Minimal thickening of the urinary bladder wall, Severely atrophic right kidney, suspicious for right pyelonephritis Plan: -Antibiotics coverage with ceftriaxone 07/12- #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 bilaterally on lower extremities -Patient is advised to keep it moisturized #Primary hypertension Patient states her home medication includes amlodipine 10 mg daily however she stopped taking it several months ago -Resume home amlodipine 10 mg daily # other CT and Xray findings -Liver mass: 10 mm low-density posterior right lobe liver lesion image 127 -Lung mass: Mass in the right upper lobe contiguous with the right hilar region at least 5cm -Enlarged common bile duct: Common bile duct 7 mm no stones noted -Cholelithiasis: Cholelithiasis, negative for cholecystitis -Advanced osteoarthritis of the right hip Plan: -Patient is advised to follow-up outpatient with primary care physician #substance use disorder -Patient endorses to smoking meth last meth use was approximately a month ago -Counseled patient against drug use # Unconfirmed history of colon cancer and leukemia -Patient states she has a history of colon cancer and leukemia but it is unverified on chart review -Patient also declined receiving any treatments for either one of them Health Maintenance Disposition: Medsurg or telemetry DVT Prophylaxis: enoxaparin 40mg Qdaily GI Prophylaxis: Pantoprozol-40 IV Qday Diet: regular Lines: Peripheral lines Code status: Full Assessment and plan discussed with my attending physician Dr. Apollo Vaz (PGY-1)- Internal medicine resident Attending Provider Attestation/Addendum IMili, , attest that I was physically present for the novoa portions of the service and evaluated the patient with the resident and I reviewed and discussed the case with the resident and agree with the resident's findings and plans of care as documented above Patient seen and evaluated this AM. She states she is feeling well. No acute events overnight. Pending AFBs. Afebrile overnight.
[2024-07-16] VITALS (9 sets, daily range): BP systolic 113–152; BP diastolic 62–70; PULSE 70–100; RESP 16–98; TEMP 36.2–37.2; O2SAT 92–99; BMI 16.1
[2024-07-16] MEDS: ALBUTEROL/IPRATROPIUM (Duoneb) RT SOL 3 ML NEBU 5 ML INH ×2 (06:43→18:25)
[2024-07-16] MEDS: ENOXAPARIN SOD INJ 40 MG/0.4 ML SYRINGE SC (09:54)
[2024-07-16] MEDS: cefTRIAXone/D5w 1gm IV premix 50 ML IV (09:54)
[2024-07-16] MEDS: FLUCONAZOLE 100 MG TABLET 400 MG PO (09:55)
[2024-07-16] MEDS: amLODIPine BESYLATE 5 MG TABLET 10 MG PO (09:55)
[2024-07-16] MEDS: PANTOPRAZOLE 40 MG TABLET PO (09:55)
[2024-07-16 10:51] LABS: Cult AFB Sendout- Sputum* See Sep Rpt
[2024-07-16] MEDS: DOXYCYCLINE INJ 100 MG in SODIUM CHLORIDE 0.9% (P) 100 ML IV (11:47)
--- NOTE | 2024-07-16 14:12 | PC.IP ---
Upon notification of discharge orders, MD and GME made aware of needing 3 negative sputum AFBs. Per MD, pt. is low risk for TB. and will be discharged today.
--- NOTE | 2024-07-16 14:40 | PC.NURSE ---
Dr Vaz informed me that pt is being discharged with 2 neg afb's, i let her know i was just sending #3, I called SARTHAK Jean from infection control to let her know what Dr. Vaz said about discharging pt, Miranda called me back to say that the said pt is low risk and is ok to be discharged
--- NOTE | 2024-07-16 18:44 | ESDS_ITS ---
<Statement entered by Mili Bustillos DO - 07/17/24 09:33> I, Mili Bustillos DO, attest that I was physically present for the novoa portions of the service and evaluated the patient with the resident and I reviewed and discussed the case with the resident and agree with the resident's findings and plans of care as documented above Planned Discharge Date 07/16/24 DS: Providers Provider Date of admission: 07/12/24 13:24 Primary care physician: Alberto Landis PA-C Admitting Provider: Latonia Lock MD Attending Provider on Admission: Mili Bustillos DO Consults: 07/12/24 19:41 Health Equity Referral - Safety Routine Comment: Positive screening for safety needs. Health Equity Referral - Utilities Routine Comment: Positive screening for utility assistance needs. 07/13/24 08:00 Referral Physical Therapy Routine Comment: Physician Instructions: Attending Provider on DC: Roque Vaz MD Discharging Provider: Roque Vaz MD DS: Diagnosis Problem List Completed Was Problem List Reviewed/Reconciled?: Yes Hospital Course Hospital Course Hospital course: Ms. Hameed is a 68-year-old female with past medical history significant for asthma, hypertension and history of leukemia presents to [facility] ED on 07/12/24 ED complaining of flulike symptoms for the past 2 weeks. Patient complained of pleuritic chest pain with inspiration. Patient is a poor historian and unable to confirm if she has been having hemoptysis for the past 2 years or the last hemoptysis for her was 2 years ago. Patient is admitted to the hospital for acute hypoxic respiratory failure secondary to bilateral pneumonia. patient was started on IV antibiotics and IV fluids. Patient is also cocci IgM positive and was started on fluconazole. patient was also placed in airborne isolation to rule out TB as patient does live at a jail and endorsed episodes of hemoptysis in the past. AFB were sent out which came back negative. Patient's symptoms significantly improved patient is on room air and denies shortness of breath with mild cough. There is low suspicion for tuberculosis given the fact that the patient does not have risk factors for tuberculosis other than previous history of hemoptysis. Patient denied any night sweats, fevers, travel to endemic region, previous prison sentence or any associated risk factors. Patient did not have hemoptysis over course of hospitalization. TB was ruled out as AFBs were negative x2. She was found to have liver lesions that had also been noted on previous admissions and CT scans. Reiterated to patient on multiple occasions for her to follow up with her PCP and obtain referral for biopsy for lung and liver lesions. Patient verbalized understanding. She has self reported colon cancer, but states that she chickened out from colonoscopy twice. Patient is hemodynamically and clinically stable to be discharged home to self-care. Patient is strongly advised if her symptoms worsen or return to promptly return to the ED. Discharge Recommendations Patient is recommended to follow-up with primary care physician within 1 week to discuss recent hospitalization as well as possible biopsy of the lung and liver lesion. Patient is being started on new antihypertensive medication amlodipine 10 mg to be taken once daily and is recommended to maintain blood pressure log of morning, noon, evening and to follow-up with primary care physician for further management of hypertension Patient is recommended to continue with fluconazole 400 mg once daily for the next 3 to 6 months for management of valley fever and is recommended to follow- up with primary care physician in regards to duration of that therapy. In case of worsening symptoms return to the emergency room. Hospitalization Diagnosis #Acute hypoxic respiratory failure #Sepsis secondary to #Bilateral CAP pneumonia #Hemoptysis-unclear history # Concern for tuberculosis ruled out # Cocci pneumonia #COPD exacerbation in the setting of #History of asthma #Acute pyelonephritis #Primary hypertension # other CT and Xray findings -Liver mass: 10 mm low-density posterior right lobe liver lesion image 127 -Lung mass: Mass in the right upper lobe contiguous with the right hilar region at least 5cm -Enlarged common bile duct: Common bile duct 7 mm no stones noted -Cholelithiasis: Cholelithiasis, negative for cholecystitis -Advanced osteoarthritis of the right hip Plan: -Patient is advised to follow-up outpatient with primary care physician Assessment and plan discussed with my attending physician Dr. Apollo Vaz (PGY-1)- Internal medicine resident Time Spent with Patient Time attestation: Total time spent providing and/or coordinating discharge services: >30mins Exam Vital Signs Temp Pulse Resp BP Pulse Ox O2 Del Method O2 Flow Rate 98.9 F 70 18 148/67 H 99 Room Air 1 07/16/24 16:00 07/16/24 18:26 07/16/24 18:26 07/16/24 16:00 07/16/24 18:26 07/16/24 16:00 07/15/24 19:07 Narrative Exam GENERAL: A&Ox3 . Awake, Not in acute distress NEURO: no focal neurological deficits HEENT: Atraumatic, Normocephalic. mucous membranes moist. Eyes open, symmetrical, & clear HEART: Normal Heart Sounds LUNGS: Clear breath sounds on auscultation ABDOMEN: soft, non-distended, non-tender, bowel sounds heard, no guarding or rebound tenderness SKIN: severely dry scaly skin bilaterally on lower extremities EXTREMITIES: No edema, tenderness, able to move all 4 extremities, pedal pulses palpated Discharge Plan Plan Patient Disposition: HOME (Self Care) Care Plan Goals: Patient is recommended to follow-up with primary care physician within 1 week to discuss recent hospitalization as well as possible biopsy of the lung lesion. Patient is being started on new antihypertensive medication amlodipine 10 mg to be taken once daily and is recommended to maintain blood pressure log of morning, noon, evening and to follow-up with primary care physician for further management of hypertension Patient is recommended to continue with fluconazole 400 mg once daily for the next 3 to 6 months for management of valley fever and is recommended to follow- up with primary care physician in regards to duration of that therapy. In case of worsening symptoms return to the emergency room. Prescriptions/Referrals Prescriptions/Med Rec: New fluconazole 200 mg tablet 400 mg PO QDAY Qty: 60 2RF dextromethorphan-guaifenesin 5-100 mg/5 mL liquid 10 ml PO Q8H PRN (Reason: cough) Qty: 500 0RF amlodipine 10 mg tablet 10 mg PO QDAY Qty: 30 0RF Continued montelukast 10 mg Tablet 10 mg PO QPM Flovent HFA 110 mcg/actuation Hfa Aerosol Inhaler 2 puff INHALATION BID PRN (Reason: Shortness Of Breath Or Wheezing) pantoprazole [Protonix] 40 mg tablet,delayed release (DR/EC) 40 mg PO QDAY Qty: 14 0RF dicyclomine 20 mg tablet 20 mg PO TID PRN (Reason: abdominal pain) Qty: 20 0RF Discontinued cephalexin 500 mg capsule 500 mg PO QID Qty: 8 0RF ciprofloxacin HCl 250 mg tablet 250 mg PO BID Qty: 14 0RF metronidazole 250 mg tablet 250 mg PO TID Qty: 21 0RF Referrals: Alberto Landis PA-C [Primary Care Provider] - Patient/Caregiver Discharge Instructions Education Materials: Understanding Coccidioidomycosis Print Language: Irish Stand Alone Forms: Suzan Award Info., Patient Portal Info Letter Discharge Order Discharge Orders: Discharge (Routine); Ordered 07/16/24 Ordered By: Marlene Pacheco Quality Discharge Quality Measures VTE prophylaxis
== END 2024-07-16 18:37 | disposition home or self-care (01) | DRG 871 ==
LOC: SERX 11:10 → SERHOLD 13:48 → S3NX 18:42
PROVIDERS: Nurse Practitioner Primary Care; Admitting Provider Internal Medicine; Emergency Provider Emergency Medicine; PCP Family Medicine; Visit Provider Internal Medicine
DX: A41.9 Sepsis, unspecified organism (principal); J18.9 Pneumonia, unspecified organism; J96.01 Acute respiratory failure with hypoxia; J44.0 Chronic obstructive pulmonary disease with (acute) lower respiratory infection; J44.1 Chronic obstructive pulmonary disease with (acute) exacerbation; N10 Acute pyelonephritis; R64 Cachexia; R04.2 Hemoptysis; Z59.00 Homelessness unspecified; Z68.1 Body mass index [BMI] 19.9 or less, adult; F15.90 Other stimulant use, unspecified, uncomplicated; I10 Essential (primary) hypertension; K76.9 Liver disease, unspecified; N30.91 Cystitis, unspecified with hematuria; R16.0 Hepatomegaly, not elsewhere classified; K80.20 Calculus of gallbladder without cholecystitis without obstruction; Q80.9 Congenital ichthyosis, unspecified; Z87.891 Personal history of nicotine dependence; Z88.0 Allergy status to penicillin; Z79.899 Other long term (current) drug therapy
CPT/HCPCS: 36415; 71046; 71260; 74177; 80053; 81001; 82803; 83605; 83735; 83880; 84100; 84145; 84484; 85025; 86480; 86580; 86635; 87015; 87040; 87116; 87205; 87206; 87400; 87811; 93005; 94640; 94644; 96361; 96365; 96366; 96367; 96375; 97162; 99291; A4649; A9270; J0456; J0696; J1650; J2919; J3490; J7030; J7050; Q9967

== ENCOUNTER 2024-08-24 00:37 | Inpatient (IN) | payer MEDICARE, MEDICAID, SELFPAY ==
[2024-08-24] VITALS (16 sets, daily range): BP systolic 103–182; BP diastolic 41–105; PULSE 74–106; RESP 17–31; TEMP 36.7–37.2; O2SAT 91–100; BMI 21.4
--- NOTE | 2024-08-24 00:38 | EKG_ITS ---
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: : 1955 Requested By: ED Temporary Provider Order Number: [id number] Reading MD: ED Temporary Provider Measurements Intervals [place] Rate: 101 P: 70 AR: 185 QRS: -28 QRSD: 82 T: 83 QT: 290 QTc: 377 Interpretive Statements SINUS TACHYCARDIA RIGHT ATRIAL ENLARGEMENT [0.3mV P-WAVE] BORDERLINE LEFT AXIS DEVIATION [QRS AXIS < -20] MODERATE T-WAVE ABNORMALITY, CONSIDER LATERAL ISCHEMIA [-0.1+ mV T-WAVE IN I/aVL/V5/V6] Compared to ECG 07/12/2024 07:56:42 T-wave abnormality now present Possible ischemia now present Sinus rhythm no longer present Left ventricular hypertrophy no longer present ST (T wave) deviation no longer present /store/S0/[id number]
--- NOTE | 2024-08-24 01:43 | PD.EDADULT ---
ED General RME/HPI General Chief complaint: Shortness of Breath/Dyspnea Stated complaint: SOB Time Seen by Provider: 08/24/24 01:42 Arrival date/time: 08/24/24 00:37 RME / HPI RME / HPI narrative: Patient is a 68 years old homeless female with PMH of asthma, meth use, hypertension and history of leukemia presented to the ED due to SOB. She reports symptoms began yesterday and were worsening. She denies fever, chills, abdominal pain. She reports mild chest pain when she coughs. She was discharged from [facility] 1 months ago after admission for sepsis secondary to pneumonia. She did not follow-up with PCP after discharge and did not take her medications. She continued to use methamphetamine and smoke tobacco. Related Data Home Medications ?Medication ?Instructions ?Recorded ?Confirmed fluticasone propionate 110 2 puff inhalation BID PRN 02/14/20 01/28/21 mcg/actuation HFA aerosol inhaler Shortness Of Breath Or Wheezing (Flovent HFA) montelukast 10 mg tablet 10 mg PO QPM 02/14/20 01/28/21 Previous Rx's ?Medication ?Instructions ?Recorded dicyclomine 20 mg tablet 20 mg PO TID PRN abdominal pain 12/13/23 #20 tabs pantoprazole 40 mg tablet,delayed 40 mg PO QDAY #14 tabs 12/13/23 release (Protonix) amlodipine 10 mg tablet 10 mg PO QDAY #30 tabs 07/16/24 dextromethorphan-guaifenesin 5 10 ml PO Q8H PRN cough #500 mL 07/16/24 mg-100 mg/5 mL oral liquid fluconazole 200 mg tablet 400 mg (2 x 200 mg) PO QDAY #60 07/16/24 tabs Allergies Allergy/AdvReac Type Severity Reaction Status Date / Time Penicillins Allergy Severe HIVES Verified 08/24/24 00:38 Review of Systems Review of Systems Systems Reviewed: All systems reviewed, normal except as documented ED Exam Narrative Physical exam: Gen: Well-developed disheveled female. HEENT: NCAT, PERRLA, EOMI, MMM, anicteric conjunctivae. CVS: normal S1 and S2. RRR. No M/R/G. Resp: Decreased breath sounds B/L. No rhonchi, rales, crackles or wheezing. Abd: soft, non-tender, non-distended. BS+ in all 4 quadrants. MSK: Good ROM in BUE & BLE. No rash. Lower extremities are dry with scaly rash. Neuro: CN II-XII grossly intact. Strength 5/5 in BUE & BLE. Alert and oriented x3. Course Quality Measures none Orders Category Date Time Status Bedside COVID-19 Antigen Test NOW Care 08/24/24 01:50 Completed Bedside Influenza A&B Antigen Test NOW Care 08/24/24 01:[address] Screening NOW Care 08/24/24 04:33 Active EKG (ED ONLY) *Do not use* NOW Care 08/24/24 00:38 Completed IV [Insert IV] NOW Care 08/24/24 01:[address] chest abdomen pelvis w Stat Exams 08/24/24 04:33 Stop Req CXRP [XR chest 1V portable] Stat Exams 08/24/24 01:50 Taken EKG (ED Only) Stat Exams 08/24/24 00:38 Draft CBC Stat Lab 08/24/24 02:00 Completed CMP [Comprehensive Metabolic Panel] Stat Lab 08/24/24 02:00 Completed Drug Screen,Urine Stat Lab 08/24/24 04:33 Ordered Magnesium Stat Lab 08/24/24 02:00 Completed Troponin I Stat Lab 08/24/24 02:00 Completed Albuterol/Ipratr Rt Mariam [Duoneb Rt Mariam] Med 08/24/24 01:50 Discontinued 3 ml INH X1 ONE KCL 10% Liq UDC 15 ML Med 08/24/24 02:41 Discontinued 40 meq PO X1 ONE Potassium Chloride [K-Dur] Med 08/24/24 02:36 Discontinued 40 meq PO X1 ONE Oxygen Delivery NOW RT 08/24/24 01:50 Active Vital Signs Vital signs: Vital Signs Temperature 98.4 F 08/24/24 00:38 Pulse Rate 106 H 08/24/24 00:38 Respiratory Rate 18 08/24/24 00:38 Blood Pressure 166/105 H 08/24/24 00:38 Pulse Oximetry (%) 95 08/24/24 00:38 Oxygen Delivery Method Nasal Cannula 08/24/24 00:38 Oxygen Flow Rate 4 08/24/24 00:38 Procedures -ED EKG Interpretation #1: Date of EK08/24/24 Time of EK:52 Rate: 101 Interpretation: Reviewed by me EKG Impression: Sinus tachycardia Additional EKG comment: Poor quality EKG. [facility] Patient data External records reviewed:: [facility] previous records and EMS form Clinical information provided by:: patient and EMS Social determinants that could affect healthcare access:: housing Patient has the following chronic illnesses:: asthma, meth use, hypertension and history of leukemia How is presenting disease/condition affected by chronic disease/condition?: caused by Evaluation data The following diagnostics were reviewed and interpreted by me:: lab results, radiology exam(s) and EKG tracing(s) Lab and/or radiology exams considered but not ordered:: CTA Interpretation Summary: pending work up Medications Medications considered but not ordered:: Abx Medication administrations:: Medication Administration History Discontinued Medications Albuterol/Ipratropium (Albuterol/Ipratropium (Duoneb) Rt Mariam 3 Ml Nebu) 3 ml INH X1 ONE Stop: 08/24/24 01:51 Last Admin: 08/24/24 02:13 Dose: 3 ml Documented By: REJI Potassium Chloride (Potassium Chloride 20 Meq Tabcr) 40 meq PO X1 ONE Stop: 08/24/24 02:37 Last Admin: 08/24/24 02:50 Dose: Not Given Documented By: ITA Non-Admin Reason: Cancelled by Provider Potassium Chloride (Potassium Chloride 10% 20 Meq/15 Ml Udc) 40 meq PO X1 ONE Stop: 08/24/24 02:42 Last Admin: 08/24/24 02:47 Dose: 40 meq Documented By: ITA DuoNebs, potassium 40 mEq Consultations Consultation(s) initiated? (list below): No Diagnosis Differential Diagnosis ED Complaint MDM: COPD, PNA, asthma, pulmonary malignancy Most likely diagnosis given after review of the tests above:: Pulmonary malignancy Admission Indicated Admission indicated?: not indicated Explain why admission is indicated or not indicated:: Pending work up. Admission Request Was there a request for admission?: No Disposition Plan Disposition Plan: other (specify) (passed to day shift.) Medical Decision Making Differential Diagnosis Differential Diagnosis: COPD, PNA, asthma, pulmonary malignancy Lab Data 08/24/24 02:00 08/24/24 02:00 Labs: Lab Results 08/24/24 Range/Units 02:00 WBC 8.8 (3.6-11.0) Thou/mm3 RBC 4.45 (4.00-5.20) Miln/mm3 Hgb 13.2 (12.0-16.0) g/dL Hct 41.0 (36.0-46.0) % MCV 92 (80-100) fL MCH 29.7 (25.0-35.0) pg MCHC 32.2 (31.0-37.0) g/dl RDW Std Deviation 57.1 H (36.4-46.3) fL Plt Count 198 D (140-440) Thou/mm3 Neut % (Auto) 90 H (37-80) % Lymph % (Auto) 3 L (10-50) % [place] % (Auto) 6 (0-12) % Eos % (Auto) 0 (0-10) % Baso % (Auto) 0 (0-2.5) % Neut # (Auto) 7.9 H (1.8-7.7) Thou/mm3 Lymph # (Auto) 0.3 L (1.0-4.8) Thou/mm3 [place] # (Auto) 0.5 (0.0-0.8) Thou/mm3 Eos # (Auto) 0.0 (0.0-0.5) Thou/mm3 Baso # (Auto) 0.0 (0.0-0.2) Thou/mm3 Immature Gran # (Auto) 0.03 H (0.00-0.00) Thou/mm3 Absolute Nucleated RBC 0.00 (0.00-0.00) Thou/mm3 Immature Gran % 0 (0-0) % Nucleated RBC % 0 (0) /100 WBC Sodium 138 (136-145) mMol/L Potassium 3.2 L (3.4-5.1) mMol/L Chloride 100 (98-107) mMol/L Carbon Dioxide 27.0 (20.0-31.0) mMol/L Anion Gap 11 (7-16) BUN 28 H (9-23) mg/dL Creatinine 1.2 (0.6-1.3) mg/dL Estim Creat Clear Calc 32.2 L (>60) mL/min eGFR 49 L (60 - ) See Note BUN/Creatinine Ratio 23 H (12-20) Ratio Glucose 106 (74-106) mg/dL Calculated Osmolality 281 (275-295) Calcium 9.5 (8.3-10.6) mg/dL Corrected Calcium 9.5 (8.5-10.1) mg/dL Magnesium 2.0 (1.6-2.6) mg/dL Total Bilirubin 0.9 (0.3-1.2) mg/dL AST 20 (0-34) U/L ALT 15 (10-49) U/L Alkaline Phosphatase 103 (46-116) U/L Troponin I 0.022 (0.0-0.045) ng/mL Total Protein 7.6 (5.7-8.2) gm/dL Albumin 4.0 (3.4-4.8) gm/dL Globulin 3.6 H (2.3-3.5) gm/dL Albumin/Globulin Ratio 1.1 L (1.2-2.2) Discharge Plan Prescriptions/Referrals Prescriptions/Med Rec: No Action montelukast 10 mg Tablet 10 mg PO QPM Flovent HFA 110 mcg/actuation Hfa Aerosol Inhaler 2 puff INHALATION BID PRN (Reason: Shortness Of Breath Or Wheezing) fluconazole 200 mg tablet 400 mg PO QDAY Qty: 60 2RF dextromethorphan-guaifenesin 5-100 mg/5 mL liquid 10 ml PO Q8H PRN (Reason: cough) Qty: 500 0RF amlodipine 10 mg tablet 10 mg PO QDAY Qty: 30 0RF pantoprazole [Protonix] 40 mg tablet,delayed release (DR/EC) 40 mg PO QDAY Qty: 14 0RF dicyclomine 20 mg tablet 20 mg PO TID PRN (Reason: abdominal pain) Qty: 20 0RF Referrals: Alberto Landis PA-C [Primary Care Provider] - In 1 week Problem List Clinical Impression: Lung malignancy Patient/Caregiver Discharge Instructions Print Language: Spanish Attestation Attestation I, Dr. Doug MD was present for the pertinent history and physical exam for this patient, reviewed the note, was involved in the management of this patient, completing a pelvic exam on this patient, have reviewed the resident note and agree.
--- NOTE | 2024-08-24 01:50 | XR_ITS ---
Examination: AP chest single view Technique one AP portable upright chest single view Exam date and time: August 24, 2024 0100 hrs. Comparison July 12, 2024 Indications: Acute hypoxic respiratory failure Findings: Pulmonary mass in the right upper lobe again noted Retraction of the trachea to the right Mild enlargement cardiac contour Extensive right apical pleural disease Severe osteopenia Impression: Pulmonary mass in the right upper lobe Please see the CT chest report July 12, 2024, consider repeat CT chest with intravenous contrast
[2024-08-24 02:07] LABS: Basophils % (Auto) 0 % (0-2.5); Eosinophils % (Auto) 0 % (0-10); Hemoglobin 13.2 g/dL (12.0-16.0); Immature Granulocytes % (Auto) 0 % (0-0); Immature Granulocytes Auto 0.03 Thou/mm3 (0.00-0.00); Lymphocytes # (Auto) 0.3 Thou/mm3 (1.0-4.8); Lymphocytes % (Auto) 3 % (10-50); Mean Corpuscular HGB Conc 32.2 g/dl (31.0-37.0); Mean Corpuscular Hemoglobin 29.7 pg (25.0-35.0); Mean Corpuscular Volume 92 fL (80-100); Monocytes # (Auto) 0.5 Thou/mm3 (0.0-0.8); Monocytes % (Auto) 6 % (0-12); Neutrophils # (Auto) 7.9 Thou/mm3 (1.8-7.7); Neutrophils % (Auto) 90 % (37-80); Nucleated Red Blood Cell % 0 /100 WBC (0); Platelet Count 198 Thou/mm3 (140-440); RDW Standard Deviation 57.1 fL (36.4-46.3); Red Blood Count 4.45 Miln/mm3 (4.00-5.20); White Blood Count 8.8 Thou/mm3 (3.6-11.0)
[2024-08-24] MEDS: ALBUTEROL/IPRATROPIUM (Duoneb) RT SOL 3 ML NEBU INH ×4 (02:13→23:34)
[2024-08-24 02:33] LABS: Alanine Aminotransferase 15 U/L (10-49); Albumin/Globulin Ratio 1.1 (1.2-2.2); Alkaline Phosphatase 103 U/L (46-116); Anion Gap 11 (7-16); Aspartate Amino Transferase 20 U/L (0-34); BUN/Creatinine Ratio 23 Ratio (12-20); Bilirubin,Total 0.9 mg/dL (0.3-1.2); Blood Urea Nitrogen 28 mg/dL (9-23); Calcium 9.5 mg/dL (8.3-10.6); Calcium (Corrected) 9.5 mg/dL (8.5-10.1); Chloride 100 mMol/L (98-107); Creatinine (Component) 1.2 mg/dL (0.6-1.3); Estimated Creatinine Clearance 32.2 mL/min (>60); Globulin 3.6 gm/dL (2.3-3.5); Glucose 106 mg/dL (74-106); Osmolality,Calculated 281 (275-295); Potassium 3.2 mMol/L (3.4-5.1); Sodium 138 mMol/L (136-145); Total Protein 7.6 gm/dL (5.7-8.2); Troponin I 0.022 ng/mL (0.0-0.045); eGFR 49 See Note
[2024-08-24] MEDS: POTASSIUM CHLORIDE 10% 20 MEQ/15 ML UDC 40 MEQ PO (02:47)
--- NOTE | 2024-08-24 08:24 | PC.NURSE ---
Pt refused to give us a STEF PEREZ made aware
[2024-08-24 09:38] LABS: Amphetamine/Methamp Scrn,U Positive (Negative); Barbiturate Screen,Urine Negative (Negative); Benzodiazepines Screen,Urine Negative (Negative); Benzoylecgonine Screen, Ur Negative (Negative); Fentanyl Screen,Urine Negative (Negative); Opiate Screen,Urine Negative (Negative); THC Screen,Urine Negative (Negative)
--- NOTE | 2024-08-24 09:53 | PC.NURSE ---
After pt ambulated with this automobile and property underwriter and pt sats decreased to 81% on RA pt is COPD but will need oxygen for home, pt was layed down and placed on 2L/NC and oxygen saturation increased to 90% aware
[2024-08-24] MEDS: SODIUM CHLORIDE 0.9% 500 ML 500 ML 999 ML IV (10:25)
--- NOTE | 2024-08-24 10:51 | EDNOTE_ITS ---
Emergency Room Addendum <Marian Ott - Last Filed: 08/24/24 10:54> Addendum Narrative: 0600: Care assumed from Dr. Lenz, the previous shift emergency physician. Past medical, surgical, social and family history reviewed. Vitals and home medications reviewed. I will assume the care of the patient at this time, pending labs and final disposition. Please refer to the emergency department record for history and examination from initial visit.? I spoke with hospitalist team who accept the patient for admission. <Shane Lopez MD - Last Filed: 08/24/24 17:13> Addendum Narrative: 0600: Care assumed from Dr. Lenz, the previous shift emergency physician. Past medical, surgical, social and family history reviewed. Vitals and home medications reviewed. I will assume the care of the patient at this time, pending labs and final disposition. Patient was signed out to them because the patient was hypoxic on room air 98% but was comfortable on oxygen. She is homeless and was quite hungry and went in the room she was eating her Jell-O and when I reevaluate her after all the labs never then came back she once again has a chest x-ray with a right upper lobe mass and pneumonia and was recently treated for cocci 2 months ago but has not been taking those medications. We got the patient up to walker she walked about 30 feet and 1 direction came back her O2 sats dropped into the 60 and low 70 range with a very good waveform. Medical workup today reveals a urine drug screen positive for amphetamines. Urine analysis still has not been collected at the time of this dictation which is 1700 hrs. Sodium 130 potassium 3.2 chloride 100 CO2 27 BUN 28 creatinine 1.2 with an elevated prerenal azotemia. CBC has a white count 8.8 hemoglobin of 13.2. No while the patient is in the room she can have is a persistent sinus tachycardia in the low 100 range. And states she has not used meth for 2 days. I asked clinical social work therapist to consult on this patient but at that time the O2 sats were in the upper 60s low 70s and this clearly is way below her usual range and must have more pneumonia than we are aware of. At that time I called the hosp italist spoke with Dr. Ortega and they agreed admit the patient for worsening hypoxemia. And they are given discussed the further workup. The issue of neoplasm versus cocci are both still loom and that chest x-ray clearly has not resolved over 2 months. . Hospitalist later came down saw the patient admitted here. Please refer to the emergency department record for history and examination from initial visit.? I spoke with hospitalist team who accept the patient for admission.
[2024-08-24 11:28] LABS: B-Type Natriuretic Peptide 79 pg/mL (0-100); Troponin I < 0.020 ng/mL (0.0-0.045)
[2024-08-24] MEDS: SODIUM CHLORIDE 0.9% 1000 ML 1,000 ML 150 ML IV (12:06)
[2024-08-24] MEDS: cefTRIAXone 1,000 MG in SODIUM CHLORIDE 0.9% (Popper) 50 ML 100 MG IV (12:06)
[2024-08-24] MEDS: AZITHROMYCIN INJ 500 MG in SODIUM CHLORIDE 0.9% 250 ML 250 ML 250 MG IV (13:31)
[2024-08-24] MEDS: PANTOPRAZOLE 40 MG TABLET PO (13:32)
[2024-08-24] MEDS: FLUCONAZOLE 100 MG TABLET 400 MG PO (13:34)
--- NOTE | 2024-08-24 14:27 | ECHO_ITS ---
Transthoracic Echo Report Ht (in): 60 Wt (lb): 110 Exam Location: Portable Status: Inpatient Cytotechnologist Supervisor: JEANNA Mancini^^^^ Indications: Procedure Performed: BP: 152 / 87 HR: 97 Technical Quality: Technically difficult study MEASUREMENTS (Male / Female) Normal Values 2D ECHO LV Diastolic Diameter PLAX 4.2 cm 4.2 - 5.9 / 3.9 - 5.3 cm LV Systolic Diameter PLAX 2.9 cm IVS Diastolic Thickness 0.7 cm 0.6 - 1.0 / 0.6 - 0.9 cm LVPW Diastolic Thickness 0.6 cm 0.6 - 1.0 / 0.6 - 0.9 cm LV Relative Wall Thickness 0.3 LVOT Diameter 1.5 cm Aortic Root Diameter 2.6 cm LA Systolic Diameter LX 2.3 cm 3.0 - 4.0 / 2.7 - 3.8 cm LV Ejection Fraction MOD BP 61.2 % >= 55 % LV Cardiac Index MOD BP 3188.5 cm?/min?m? LV Ejection Fraction MOD 4C 57.5 % LV Cardiac Index MOD 4C 3308.3 cm?/min?m? LV Ejection Fraction 4C AL 57.5 % LV Cardiac Index 4C AL 3366.5 cm?/min?m? LV Ejection Fraction MOD 2C 61.7 % LV Cardiac Index MOD 2C 2383.0 cm?/min?m? LV Ejection Fraction 2C AL 63.0 % LV Cardiac Index 2C AL 2441.6 cm?/min?m? LA Volume Index 26.1 cm?/m? 16 - 28 cm?/m? DOPPLER AV Peak Velocity 197.6 cm/s AV Peak Gradient 15.6 mmHg AV Mean Gradient 10.0 mmHg AV Velocity Time Integral 35.1 cm LVOT Peak Velocity 141.0 cm/s LVOT Peak Gradient 8.0 mmHg LVOT Velocity Time Integral 34.6 cm LVOT Cardiac Index 4070.0 cm?/min?m? AV Area Cont Eq vti 1.7 cm? AV Area Cont Eq pk 1.3 cm? MV Area PHT 7.3 cm? Mitral E Point Velocity 57.6 cm/s Mitral A Point Velocity 82.5 cm/s Mitral E to A Ratio 0.7 LV E' Lateral Velocity 10.8 cm/s Mitral E to LV E' Lateral Ratio 5.3 LV E' Septal Velocity 10.6 cm/s Mitral E to LV E' Septal Ratio 5.4 TR Peak Velocity 212.0 cm/s TR Peak Gradient 18.0 mmHg FINDINGS Left Ventricle Normal left ventricular size, wall thickness, systolic function with no obvious regional wall motion abnormalities. There is grade I diastolic dysfunction of the left ventricle (impaired relaxation pattern). The left ventricular ejection fraction is normal, estimated at 55-60%. Right Ventricle The right ventricle is normal in size and systolic function. The estimated right ventricular systolic pressure, 19 mmHg. Left Atrium The left atrium is normal by two-dimensional, color flow and Doppler imaging with no structural abnormalities, no thrombus formation present. Right Atrium The right atrium is normal by two-dimensional imaging, color flow and Doppler imaging with no structural abnormalities, no thrombus formation present. Atrial Septum The interatrial septum appears normal with no evidence of a shunt. Aorta The aorta is normal by two-dimensional, color flow and Doppler interrogation. Mitral Valve Trace to mild mitral regurgitation. Mild mitral annular calcification. Aortic Valve Mild aortic valve stenosis, mean gradient 10 mmHg, JORDI 1.7 cm?. Tricuspid Valve There is mild tricuspid valve regurgitation. Pulmonic Valve The pulmonic valve is not well visualized. There is no significant pulmonic valve regurgitation. Vessels The pulmonary artery appears normal. The inferior vena cava pulmonary and hepatic veins appear normal. Pericardium The pericardium is normal by two-dimensional imaging. There is no significant pericardial effusion. CONCLUSIONS The transthoracic study is normal by two-dimensional, color flow imaging and Doppler interrogation. Normal left ventricular size and function. Approximate ejection fraction is 55%. Trace mitral and trace tricuspid regurgitation Aortic valv scerosis with Vmax 1.8 m/sec No wall motion abnormalities noted. Patricia Batista (Electronically Signed) Final Date: 24 August 2024 17:16
--- NOTE | 2024-08-24 14:31 | ESHP_ITS ---
<Statement entered by Siddhartha Henson MD - 08/25/24 00:34> Patient was seen and examined by me personally. I agree with most of the assessment and plan as discussed with the marketing summer intern physician, and my attending, Dr. Aden. Patient is a 68-year-old female with PMH COPD, HTN, current smoker/substance use who was admitted for acute hypoxic respiratory failure, likely secondary to COPD exacerbation versus Cocci. Diminished breath sounds noted on exam. Tachycardia, tachypnea noted, and SaO2 in 80s on room air with improvement to 90s on 2L NC while seen in ED. Labs fairly unremarkable, mild increase in creatinine from baseline, and potassium 3.2. Previous imaging reviewed and current CXR with similar findings of RUL mass; unsure if patient followed up with PCP. At that time, patient was admitted for sepsis from pneumonia, found to be positive for Cocci in house but negative at [facility]; TB was ruled out. Patient was discharged with fluconazole, however unsure of her compliance. Will repeat Cocci serology, and start patient on fluconazole & DuoNeb at this time. Patient received rocephin/azithromycin in ED. Due to SOB and history of methamphetamine use, will obtain echo/BNP. Will also obtain PT eval and consult social research assistant due to current living situation. Siddhartha Henson MD, PGY-3 Documentation for date of: 08/24/24 HPI History of Present Illness History of present illness: Ms. Hameed is a 68-year-old female with past medical history significant for asthma, hypertension and questionable history of leukemia presents to the ED complaining of SOB. Pt is poor historian therefore majority of history is taken from chart review and speaking to ED physician and nurses. Due to unstable living condition patient stated she did not take any of her medications and has remained uncompliant with her medication and has continued to use methamphetamine and smoking tobacco. Patient states she has not eaten anything in 5 days which has caused her to be nauseous because she cannot find food. Patient does have a history of asthma therefore uses inhaler and cannot remember when was the last time she used her inhaler and if she still has 1 because of her living conditions. ED course Vitals: Blood pressure 166/105, pulse 106, respirations 18, patient is saturating 95% on 3 L of oxygen via nasal cannula Labs: CBC and CMP is unremarkable with exception of potassium 3.2 BUN 28 GFR 49 Urine tox positive for methamphetamines In the ED patient was given 1500 of normal saline, ceftriaxone x 1, and a breathing treatment PMH: HTN, Asthma, leukemia (unknown type and confirmation) PSH: NKSH SH: Patient denies alcohol use, patient smokes meth and last meth use was approximately 1 month ago, former smoker (last cigarette was a year ago) Home Meds: Amlodipine 10 Mg daily and albuterol inhaler Review of Systems Review of Systems Systems Reviewed: All systems reviewed, normal except as documented Exam Vital Signs Temp Pulse Resp BP Pulse Ox O2 Del Method O2 Flow Rate 98.9 F 95 20 147/58 H 99 Nasal Cannula 3 08/24/24 12:18 08/24/24 14:08/24/24 14:08/24/24 12:18 08/24/24 14:08/24/24 12:18 08/24/24 14:09 Narrative Exam GENERAL: A&Ox3 . Awake, Not in acute distress NEURO: no focal neurological deficits HEENT: Atraumatic, Normocephalic. mucous membranes moist. Eyes open, symmetrical, & clear HEART: Normal Heart Sounds LUNGS: Clear to auscultation with no wheezing or crackles. ABDOMEN: soft, non-distended, non-tender, bowel sounds heard, no guarding or rebound tenderness SKIN: No Rash or ecchymoses EXTREMITIES: No edema, tenderness, able to move all 4 extremities, pedal pulses palpated Results: Labs 08/25/24 05:32 08/25/24 05:32 Labs: Short CBC 08/24/24 Range/Units 02:00 WBC 8.8 (3.6-11.0) Thou/mm3 Hgb 13.2 (12.0-16.0) g/dL Hct 41.0 (36.0-46.0) % Plt Count 198 D (140-440) Thou/mm3 BMP 08/24/24 02:00 Sodium 138 Potassium 3.2 L Chloride 100 Carbon Dioxide 27.0 BUN 28 H Creatinine 1.2 Glucose 106 Calcium 9.5 Cardiac Enzymes 08/24/24 08/24/24 Range/Units 02:00 10:57 Troponin I 0.022 < 0.020 (0.0-0.045) ng/mL Liver Function 08/24/24 Range/Units 02:00 Total Bilirubin 0.9 (0.3-1.2) mg/dL AST 20 (0-34) U/L ALT 15 (10-49) U/L Alkaline Phosphatase 103 (46-116) U/L Albumin 4.0 (3.4-4.8) gm/dL Quality Measures Quality Measures none Advance care planning discussed with:: patient Medications Home Medications and Allergies Allergies Allergy/AdvReac Type Severity Reaction Status Date / Time Penicillins Allergy Severe HIVES Verified 08/24/24 00:38 Visit Medications Acetaminophen (Acetaminophen 325 Mg Tablet) 650 mg PO Q6HR PRN PRN Reason: FEVER >101 Stop: 09/23/24 12:07 Albuterol/Ipratropium (Albuterol/Ipratropium (Duoneb) Rt Mariam 3 Ml Nebu) 3 ml INH Q4HRRT LORRI Stop: 09/23/24 14:59 Last Admin: 08/24/24 14:07 Dose: 3 ml Fluconazole (Fluconazole 100 Mg Tablet) 400 mg PO QDAY LORRI Stop: 08/31/24 12:14 Last Admin: 08/24/24 13:34 Dose: 400 mg Nicotine (Nicotine Patch 14 Mg/24 Hr Patch.Td24) 14 mg TOP QDAY LORRI Stop: 09/23/24 12:14 Ondansetron HCl (Ondansetron Inj 2 Mg/Ml Inj 2 Ml) 4 mg IV Q6HR PRN; Protocol PRN Reason: NAUSEA OR VOMITING Stop: 09/23/24 12:10 Pantoprazole Sodium (Pantoprazole 40 Mg Tablet) 40 mg PO QDAY LORRI Stop: 09/23/24 12:14 Last Admin: 08/24/24 13:32 Dose: 40 mg Discontinued Medications Albuterol/Ipratropium (Albuterol/Ipratropium (Duoneb) Rt Mariam 3 Ml Nebu) 3 ml INH X1 ONE Stop: 08/24/24 01:51 Last Admin: 08/24/24 02:13 Dose: 3 ml Sodium Chloride (Ns) 500 mls @ 999 mls/hr IV .Q31M ONE Stop: 08/24/24 10:23 Last Infusion: 08/24/24 10:56 Dose: Infused Sodium Chloride (Ns) 1,000 mls @ 150 mls/hr IV .Q6H40M ONE Stop: 08/24/24 16:32 Last Admin: 08/24/24 12:06 Dose: 150 mls/hr Ceftriaxone Sodium 1,000 mg/ (Sodium Chloride) 50 mls @ 100 mls/hr IV X1 ONE Stop: 08/24/24 10:28 Last Infusion: 08/24/24 13:08 Dose: Infused Azithromycin 500 mg/ Sodium (Chloride) 250 mls @ 250 mls/hr IV QDAY LORRI Stop: 08/31/24 10:01 Last Admin: 08/24/24 13:31 Dose: 250 mls/hr Azithromycin 500 mg/ Sodium (Chloride) 250 mls @ 250 mls/hr IV QDAY LORRI Stop: 08/28/24 12:05 Potassium Chloride (Potassium Chloride 20 Meq Tabcr) 40 meq PO X1 ONE Stop: 08/24/24 02:37 Last Admin: 08/24/24 02:50 Dose: Not Given Potassium Chloride (Potassium Chloride 10% 20 Meq/15 Ml Udc) 40 meq PO X1 ONE Stop: 08/24/24 02:42 Last Admin: 08/24/24 02:47 Dose: 40 meq Assessment & Plan Plan Ms. Hameed is a 68-year-old female with past medical history significant for asthma, hypertension and questionable history of leukemia presents to the ED complaining of SOB. #Acute hypoxic respiratory failure #COPD exacerbation in the setting of #History of asthma - Pt states she has worsening shortness of breath and has unable to use her inhaler because of her living situation, Pt has history of smoking -Pt is not on home oxygen -Pt is saturating 95% on 3L oxygen via and nasal canulla and remained 95% saturation on room air -Pt underwent ambulatory test in the ED and per ED physician pt was desatting to 70's Plan: -duoneds as needed, supplemental oxygen as needed #Primary hypertension Patient states her home medication includes amlodipine 10 mg daily however she is non compliant due to her living situation -Will continue to monitor blood pressure and will resume antihypertensive if blood pressure remains elevated #substance use disorder #tobacco use -Patient endorses to smoking meth last meth use was 2 days ago and smokes cigarets daily -Counseled patient against drug use -nicotine patch ordered # Unconfirmed history of colon cancer and leukemia -Patient states she has a history of colon cancer and leukemia but it is unverified on chart review -Patient also declined receiving any treatments for either one of them Health Maintenance Disposition: Medsur for observation DVT Prophylaxis: enoxaparin 40mg Qdaily GI Prophylaxis: Pantoprozol-40 IV Qday Diet: regular diet Lines: Peripheral lines Code status: Full Assessment and plan discussed with my senior resident Dr. Henson & attending physician Dr. Markie Vaz (PGY-1)- Internal medicine resident Attending Provider Attestation/Addendum I have discussed and was present for the essential components of the history, physical examination, diagnosis, and treatment plan with the resident. I agree with the patient's care as documented by the resident and amended herein by me. Moses Aden DO. Although this document has been carefully reviewed, there may still be some phonetic and other typographical errors. These errors are purely grammatical due to imperfections in the software program and should not be construed in any way to compromise the substance of the patient's medical care during this visit.
[2024-08-25] VITALS (12 sets, daily range): BP systolic 112–146; BP diastolic 57–84; PULSE 66–104; RESP 12–92; TEMP 36.6–37.1; O2SAT 89–100; BMI 18.1
[2024-08-25] MEDS: ALBUTEROL/IPRATROPIUM (Duoneb) RT SOL 3 ML NEBU INH ×5 (03:17→22:56)
[2024-08-25 06:03] LABS: Basophils % (Auto) 1 % (0-2.5); Eosinophils % (Auto) 0 % (0-10); Hematocrit 37.3 % (36.0-46.0); Hemoglobin 11.5 g/dL (12.0-16.0); Immature Granulocytes % (Auto) 1 % (0-0); Immature Granulocytes Auto 0.05 Thou/mm3 (0.00-0.00); Lymphocytes # (Auto) 0.8 Thou/mm3 (1.0-4.8); Lymphocytes % (Auto) 13 % (10-50); Mean Corpuscular HGB Conc 30.8 g/dl (31.0-37.0); Mean Corpuscular Hemoglobin 29.3 pg (25.0-35.0); Mean Corpuscular Volume 95 fL (80-100); Monocytes # (Auto) 0.5 Thou/mm3 (0.0-0.8); Monocytes % (Auto) 8 % (0-12); Neutrophils # (Auto) 4.7 Thou/mm3 (1.8-7.7); Neutrophils % (Auto) 77 % (37-80); Nucleated Red Blood Cell % 0 /100 WBC (0); Platelet Count 172 Thou/mm3 (140-440); RDW Standard Deviation 59.8 fL (36.4-46.3); Red Blood Count 3.93 Miln/mm3 (4.00-5.20); White Blood Count 6.1 Thou/mm3 (3.6-11.0)
[2024-08-25 06:46] LABS: Alanine Aminotransferase 12 U/L (10-49); Albumin, Serum 3.2 gm/dL (3.4-4.8); Albumin/Globulin Ratio 1.1 (1.2-2.2); Alkaline Phosphatase 94 U/L (46-116); Anion Gap 7 (7-16); Aspartate Amino Transferase 13 U/L (0-34); BUN/Creatinine Ratio 15 Ratio (12-20); Bilirubin,Total 0.4 mg/dL (0.3-1.2); Blood Urea Nitrogen 16 mg/dL (9-23); Calcium 8.9 mg/dL (8.3-10.6); Calcium (Corrected) 9.5 mg/dL (8.5-10.1); Carbon Dioxide 28.3 mMol/L (20.0-31.0); Chloride 106 mMol/L (98-107); Creatinine (Component) 1.1 mg/dL (0.6-1.3); Estimated Creatinine Clearance 32.5 mL/min (>60); Globulin 2.8 gm/dL (2.3-3.5); Glucose 86 mg/dL (74-106); Magnesium 1.8 mg/dL (1.6-2.6); Osmolality,Calculated 281 (275-295); Phosphorous 2.3 mg/dL (2.4-5.1); Potassium 3.6 mMol/L (3.4-5.1); Sodium 141 mMol/L (136-145); eGFR 55 See Note
[2024-08-25] MEDS: NICOTINE PATCH 14 MG/24 HR PATCH.TD24 TOP (09:19)
[2024-08-25] MEDS: FLUCONAZOLE 100 MG TABLET 400 MG PO (09:19)
[2024-08-25] MEDS: PANTOPRAZOLE 40 MG TABLET PO (09:19)
[2024-08-25] MEDS: ENOXAPARIN SOD INJ 40 MG/0.4 ML SYRINGE SC (09:19)
[2024-08-25] MEDS: NAPH,KPH MBDB 1 PACKET (1.5 GM) PO (09:23)
[2024-08-25] MEDS: Magnesium Sulfate 1 gm Ivpb 1 GM/100 ML BAG IV (09:23)
[2024-08-25 13:15] LABS: Cocci Serology, IgM Positive (Negative)
[2024-08-25 13:16] LABS: Cocid Sro, CF/ID (UCD) NO CHG* See Sep Rpt
--- NOTE | 2024-08-25 14:58 | ESPR_ITS ---
<Statement entered by Tito Lindsey MD - 08/25/24 16:19> Patient was seen and examined at the bedside. Nurse informed that patient has been refusing treatments. We discussed with the patient if she wants to have investigation for her pulmonary mass which she was agreeable with. Due to difficult IV draw PICC line was placed to proceed with CT chest with contrast to investigate for pulmonary mass possibly requiring biopsy. Will continue with current management. No acute overnight events were reported. Labs and orders were reviewed. I saw and examined the patient, and I agree with current management stated by Dr Milind MD,PGY1. Plan of care was discussed with the attending physician and resident physician. Disclaimer: Despite multiple revisions, due to the dictation software being used, the document bellow may not be free of grammatical errors including phonetic/typographic errors. However, this does not deter from our commitment to providing health care in the patient's best interest in mind. Dr. Rosalia MD, PGY 2 Documentation for date of: 08/25/24 Subjective Subjective Interval history: No acute overnight events reported. Patient seen and examined at bedside this morning currently patient is saturating above 95% on 2 L of oxygen. Patient's vitals and labs are reviewed and are stable. Cocci IgM antibody is positive patient is started on fluconazole however patient has been refusing to take medications. Chest x-ray is evident of a pulmonary nodule which has never previously been biopsied however TB was ruled out. Patient has agreed for CT angio and possibly biopsy to rule out malignancy. Patient denies any chest pain or shortness of breath and is agreeable to undergo CT angio and if needed biopsy. Patient has no other complaints. Exam Vital Signs Temp Pulse Resp BP Pulse Ox O2 Del Method O2 Flow Rate 98.8 F 86 17 142/62 H 100 Room Air 2 08/25/24 08:00 08/25/24 12:00 08/25/24 11:59 08/25/24 08:00 08/25/24 11:59 08/25/24 08:00 08/25/24 11:59 FiO2 2 08/25/24 07:21 Narrative Exam GENERAL: A&Ox3 . Awake, Not in acute distress NEURO: no focal neurological deficits HEENT: Atraumatic, Normocephalic. mucous membranes moist. Eyes open, symmetrical, & clear HEART: Normal Heart Sounds LUNGS: Clear to auscultation with no wheezing or crackles. ABDOMEN: soft, non-distended, non-tender, bowel sounds heard, no guarding or rebound tenderness SKIN: No Rash or ecchymoses EXTREMITIES: No edema, tenderness, able to move all 4 extremities, pedal pulses palpated Objective Labs 08/25/24 05:32 08/25/24 05:32 Labs: Laboratory Results - last 24 hr 08/24/24 08/25/24 15:28 05:32 WBC 6.1 RBC 3.93 L Hgb 11.5 L Hct 37.3 MCV 95 MCH 29.3 MCHC 30.8 L RDW Std Deviation 59.8 H Plt Count 172 Neut % (Auto) 77 Lymph % (Auto) 13 [place] % (Auto) 8 Eos % (Auto) 0 Baso % (Auto) 1 Neut # (Auto) 4.7 Lymph # (Auto) 0.8 L [place] # (Auto) 0.5 Eos # (Auto) 0.0 Baso # (Auto) 0.0 Immature Gran # (Auto) 0.05 H Absolute Nucleated RBC 0.00 Immature Gran % 1 H Nucleated RBC % 0 Sodium 141 Potassium 3.6 Chloride 106 Carbon Dioxide 28.3 Anion Gap 7 BUN 16 Creatinine 1.1 Estim Creat Clear Calc 32.5 L eGFR 55 L BUN/Creatinine Ratio 15 Glucose 86 Calculated Osmolality 281 Calcium 8.9 Corrected Calcium 9.5 Phosphorus 2.3 L Magnesium 1.8 Total Bilirubin 0.4 D AST 13 ALT 12 Alkaline Phosphatase 94 Total Protein 6.0 Albumin 3.2 L D Globulin 2.8 Albumin/Globulin Ratio 1.1 L Coccidioides IgM Ab Positive A Quality Measures Quality Measures none Advance care planning discussed with:: patient Assessment & Plan Assessment Current Active Medications: Generic Name Dose Route Start Last Admin Trade Name Freq PRN Reason Stop Dose Admin Acetaminophen 650 mg 08/24/24 12:08 Acetaminophen 325 Mg Tablet PO 09/23/24 12:07 Q6HR PRN FEVER >101 Albuterol/Ipratropium 3 ml 08/24/24 15:00 08/25/24 11:58 Albuterol/Ipratropium (Duoneb) Rt Mariam 3 Ml Nebu INH 09/23/24 14:59 3 ml Q4HRRT LORRI Administration Enoxaparin Sodium 40 mg 08/25/24 09:00 08/25/24 09:19 Enoxaparin Sod Inj 40 Mg/0.4 Ml Syringe SC 09/08/24 08:59 40 mg QDAY LORRI Administration Fluconazole 400 mg 08/24/24 12:15 08/25/24 09:19 Fluconazole 100 Mg Tablet PO 08/31/24 12:14 400 mg QDAY LORRI Administration Nicotine 14 mg 08/24/24 12:15 08/25/24 09:19 Nicotine Patch 14 Mg/24 Hr Patch.Td24 TOP 09/23/24 12:14 14 mg QDAY LORRI Administration Ondansetron HCl 4 mg 08/24/24 12:11 Ondansetron Inj 2 Mg/Ml Inj 2 Ml IV 09/23/24 12:10 Q6HR PRN NAUSEA OR VOMITING Protocol Pantoprazole Sodium 40 mg 08/24/24 12:15 08/25/24 09:19 Pantoprazole 40 Mg Tablet PO 09/23/24 12:14 40 mg QDAY LORRI Administration Plan Ms. Hameed is a 68-year-old female with past medical history significant for asthma, hypertension and questionable history of leukemia presents to the ED complaining of SOB. #Acute hypoxic respiratory failure #COPD exacerbation in the setting of #History of asthma #Hx of coccidiomycosis - Pt states she has worsening shortness of breath and has unable to use her inhaler because of her living situation, Pt has history of smoking -Pt is not on home oxygen -Pt is saturating 95% on 3L oxygen via and nasal canulla and remained 95% saturation on room air -Pt underwent ambulatory test in the ED and per ED physician pt was desatting to 70's -Pt has history of cocci pneumonia and has been non compliant with medications Plan: -duoneds as needed, supplemental oxygen as needed -repeat cocci IgM is positive - pt is started on flucanazole #Pulmonary nodule Chest xray evident of Pulmonary mass in the right upper lobe -chest CT with contrast is ordered to rule out malignancy. -will consider biopsy based on results #Primary hypertension Patient states her home medication includes amlodipine 10 mg daily however she is non compliant due to her living situation -Bp pressure is stable -Will continue to monitor blood pressure and will resume antihypertensive if blood pressure remains elevated #substance use disorder #tobacco use -Patient endorses to smoking meth. Last meth use was 2 days ago and smokes cigarets daily -Counseled patient against drug use -nicotine patch ordered # Unconfirmed history of colon cancer and leukemia -Patient states she has a history of colon cancer and leukemia but it is unverified on chart review -Patient also declined receiving any treatments for either one of them Health Maintenance Disposition: Telemetry for observation DVT Prophylaxis: enoxaparin 40mg Qdaily GI Prophylaxis: Pantoprozol-40 IV Qday Diet: regular diet Lines: Peripheral lines Code status: Full Assessment and plan discussed with my senior resident Dr. Lindsey & attending physician Dr. Markie Vaz (PGY-1)- Internal medicine resident Attending Provider Attestation/Addendum I have discussed and was present for the essential components of the history, physical examination, diagnosis, and treatment plan with the resident. I agree with the patient's care as documented by the resident and amended herein by me. Moses Aden DO. Patient seen and evaluated this AM. Patient refusing p.o. medications in the morning. Patient sent down for CT chest as well as CT abdomen and pelvis however due to poor vascular access, a PICC line was ordered to complete the scans for further workup for lung mass and any possible metastatic disease. Will follow-up with these results, continue fluconazole for previously diagnosed coccidiomycosis and monitor closely while the patient is here. Although this document has been carefully reviewed, there may still be some phonetic and other typographical errors. These errors are purely grammatical due to imperfections in the software program and should not be construed in any way to compromise the substance of the patient's medical care during this visit. Patient refusing p.o. meds in the AM.
[2024-08-25 15:39] LABS: Partial Thromboplastin Time 27.2 Seconds (22.0-36.0); Prothrombin Time 10.7 Seconds (9.0-12.2)
--- NOTE | 2024-08-25 15:45 | PC.SS ---
SS follow up note; SS attempted to meet with patient however patient was in CT. SS will follow up with patient tomorrow.
--- NOTE | 2024-08-25 15:56 | XR_ITS ---
Examination: CT chest with intravenous contrast 2-D sagittal and coronal reconstructions Exam date and time: August 25, 2024 at 1610 hrs. Indications: Extensive bilateral pneumonia, July 12, 2024 CTDI:vol (mGy) 5.77 DLP: (mGycm) 173 Technique: Multiple axial sections of the thorax have been obtained. Sections have been obtained, 3 mm slice thickness. Mediastinal and lung density settings have been obtained. Intravenous contrast administered, 60 cc [id number]. 2-D sagittal, coronal images obtained. Low dose protocols were performed. One or more of the following dose reduction techniques were used; automated exposure control, adjustment of the mA and/or KV according to patient size, use of iterative reconstruction technique. Findings: Extensive right lung opacity,, dense consolidation right upper lobe and right base Small areas of left lung opacity No pulmonary artery filling defects Thoracic aorta is not enlarged 15 mm posterior right lobe liver lesion No pancreatic mass Kyphosis dorsal spine Impression: Again noted dense consolidation versus masslike area in the right upper lobe and right base, clinical correlation advised 15 mm right lobe liver lesion, consider MRI abdomen liver follow-up pre and postcontrast
[2024-08-26] VITALS (12 sets, daily range): BP systolic 106–171; BP diastolic 59–88; PULSE 78–103; RESP 17–25; TEMP 36.1–36.9; O2SAT 93–100; BMI 18.7
[2024-08-26 00:50] LABS: Collection Type, Urine Clean Catch
[2024-08-26 00:54] LABS: Bilirubin,Urine Negative (Negative); Blood,Urine Negative (Negative); Clarity,Urine Clear (Clear/Hazy); Color,Urine Lt-Yellow (Lt Yel-Yel); Glucose, Urine Negative (Negative); Ketones,Urine Negative (Negative); Leukocyte Esterase,Urine Negative (Negative); Nitrite,Urine Negative (Negative); PH,Urine 6.5 (5.0-7.0); Protein,Urine Trace (Neg - Trace); RBC,Urine 1 /hpf (0-3); Squamous Epithelial Cell,Urine 1 /hpf (0-5); Urobilinogen,Urine Negative mg/dL (0.0-1.0); WBC,Urine 1 /hpf (0-5)
[2024-08-26] MEDS: ALBUTEROL/IPRATROPIUM (Duoneb) RT SOL 3 ML NEBU INH ×5 (02:55→23:07)
[2024-08-26 05:34] LABS: Basophils % (Auto) 0 % (0-2.5); Eosinophils % (Auto) 1 % (0-10); Hematocrit 36.9 % (36.0-46.0); Hemoglobin 11.4 g/dL (12.0-16.0); Immature Granulocytes % (Auto) 1 % (0-0); Immature Granulocytes Auto 0.07 Thou/mm3 (0.00-0.00); Lymphocytes # (Auto) 0.8 Thou/mm3 (1.0-4.8); Lymphocytes % (Auto) 15 % (10-50); Mean Corpuscular HGB Conc 30.9 g/dl (31.0-37.0); Mean Corpuscular Hemoglobin 29.2 pg (25.0-35.0); Mean Corpuscular Volume 94 fL (80-100); Monocytes # (Auto) 0.4 Thou/mm3 (0.0-0.8); Monocytes % (Auto) 8 % (0-12); Neutrophils # (Auto) 4.1 Thou/mm3 (1.8-7.7); Neutrophils % (Auto) 75 % (37-80); Nucleated Red Blood Cell % 0 /100 WBC (0); Platelet Count 169 Thou/mm3 (140-440); RDW Standard Deviation 58.8 fL (36.4-46.3); Red Blood Count 3.91 Miln/mm3 (4.00-5.20); White Blood Count 5.5 Thou/mm3 (3.6-11.0)
[2024-08-26 05:59] LABS: Respiratory Syncytial Virus Ag Negative (Negative)
[2024-08-26 06:00] LABS: Strep A Rapid Negative (Negative)
[2024-08-26 06:06] LABS: Alanine Aminotransferase 12 U/L (10-49); Albumin, Serum 3.1 gm/dL (3.4-4.8); Albumin/Globulin Ratio 1.1 (1.2-2.2); Alkaline Phosphatase 88 U/L (46-116); Anion Gap 8 (7-16); Aspartate Amino Transferase 15 U/L (0-34); BUN/Creatinine Ratio 15 Ratio (12-20); Bilirubin,Total 0.3 mg/dL (0.3-1.2); Blood Urea Nitrogen 15 mg/dL (9-23); Calcium 8.4 mg/dL (8.3-10.6); Calcium (Corrected) 9.1 mg/dL (8.5-10.1); Carbon Dioxide 30.5 mMol/L (20.0-31.0); Chloride 101 mMol/L (98-107); Estimated Creatinine Clearance 35.7 mL/min (>60); Globulin 2.8 gm/dL (2.3-3.5); Glucose 117 mg/dL (74-106); Magnesium 1.8 mg/dL (1.6-2.6); Osmolality,Calculated 279 (275-295); Phosphorous 2.7 mg/dL (2.4-5.1); Potassium 3.8 mMol/L (3.4-5.1); Sodium 139 mMol/L (136-145); Total Protein 5.9 gm/dL (5.7-8.2); eGFR > 60 See Note
[2024-08-26] MEDS: ENOXAPARIN SOD INJ 40 MG/0.4 ML SYRINGE SC (09:23)
[2024-08-26] MEDS: NICOTINE PATCH 14 MG/24 HR PATCH.TD24 TOP (09:23)
[2024-08-26] MEDS: PANTOPRAZOLE 40 MG TABLET PO (09:24)
[2024-08-26] MEDS: FLUCONAZOLE 100 MG TABLET 400 MG PO (09:24)
--- NOTE | 2024-08-26 11:13 | PC.SS ---
SS follow up note; SS attempted to meet with patient in order to complete initial assessment, however patient lethargic and did not respond to SS questions. SS will meet with patient at a later time.
--- NOTE | 2024-08-26 15:36 | ESPR_ITS ---
<Statement entered by Tito Lindsey MD - 08/26/24 15:55> Patient was seen and examined at the bedside. No acute overnight events were reported. Patient is scheduled to underwent CT-guided biopsy tomorrow as Lovenox was not on hold. Echo showed EF 55%. Labs were insignificant. Will follow-up with biopsy results. All labs and orders were reviewed. I saw and examined the patient, and I agree with current management stated by Dr Milind MD,PGY1. Plan of care was discussed with the attending physician and resident physician. Disclaimer: Despite multiple revisions, due to the dictation software being used, the document bellow may not be free of grammatical errors including phonetic/typographic errors. However, this does not deter from our commitment to providing health care in the patient's best interest in mind. Dr. Malik MD, PGY 2 Documentation for date of: 08/26/24 Subjective Subjective Interval history: No acute overnight events reported. Patient seen and examined at bedside this morning. Patient saturating at 94% on 1 L oxygen, vital signs are stable with blood pressure 106/59. Labs are reviewed and are unremarkable. Urinalysis is clean group A strep and RSV is negative. Patient underwent CT yesterday which showed area of consolidation versus masslike in the right upper lobe and 15 mm right lobe liver lesion which has been present in the last several imaging and is stable has not grown in size. Patient is agreeable to biopsy of the lung mass to identify the source. Patient has no complaints has remained afebrile. Exam Vital Signs Temp Pulse Resp BP Pulse Ox O2 Del Method O2 Flow Rate 97.4 F 88 18 171/88 H 99 Nasal Cannula 2 08/26/24 12:00 08/26/24 14:29 08/26/24 14:29 08/26/24 12:00 08/26/24 14:29 08/26/24 12:00 08/26/24 14:29 FiO2 2 08/26/24 00:00 Narrative Exam GENERAL: A&Ox3 . Awake, Not in acute distress NEURO: no focal neurological deficits HEENT: Atraumatic, Normocephalic. mucous membranes moist. Eyes open, symmetrical, & clear HEART: Normal Heart Sounds LUNGS: Clear to auscultation with no wheezing or crackles. ABDOMEN: soft, non-distended, non-tender, bowel sounds heard, no guarding or rebound tenderness SKIN: No Rash or ecchymoses EXTREMITIES: No edema, tenderness, able to move all 4 extremities, pedal pulses palpated Objective Labs 08/26/24 04:57 08/26/24 04:57 Labs: Laboratory Results - last 24 hr 08/25/24 08/26/24 08/26/24 15:12 00:40 02:15 WBC RBC Hgb Hct MCV MCH MCHC RDW Std Deviation Plt Count Neut % (Auto) Lymph % (Auto) Delta % (Auto) Eos % (Auto) Baso % (Auto) Neut # (Auto) Lymph # (Auto) Delta # (Auto) Eos # (Auto) Baso # (Auto) Immature Gran # (Auto) Absolute Nucleated RBC Immature Gran % Nucleated RBC % PT 10.7 INR 1.0 APTT 27.2 Sodium Potassium Chloride Carbon Dioxide Anion Gap BUN Creatinine Estim Creat Clear Calc eGFR BUN/Creatinine Ratio Glucose Calculated Osmolality Calcium Corrected Calcium Phosphorus Magnesium Total Bilirubin AST ALT Alkaline Phosphatase Total Protein Albumin Globulin Albumin/Globulin Ratio Ur Collection Type Clean Catch Urine Color Lt-Yellow Urine Clarity Clear Urine pH 6.5 Ur Specific Warren 1.030 Urine Protein Trace Urine Glucose (UA) Negative Urine Ketones Negative Urine Blood Negative Urine Nitrite Negative Urine Bilirubin Negative Urine Urobilinogen (Auto) Negative Ur Leukocyte Esterase Negative Urine RBC 1 Urine WBC 1 Ur Squamous Epith Cells 1 Urine Bacteria None RSV Rapid Negative Group A Strep Rapid Negative 08/26/24 04:57 WBC 5.5 RBC 3.91 L Hgb 11.4 L Hct 36.9 MCV 94 MCH 29.2 MCHC 30.9 L RDW Std Deviation 58.8 H Plt Count 169 Neut % (Auto) 75 Lymph % (Auto) 15 Delta % (Auto) 8 Eos % (Auto) 1 Baso % (Auto) 0 Neut # (Auto) 4.1 Lymph # (Auto) 0.8 L Delta # (Auto) 0.4 Eos # (Auto) 0.0 Baso # (Auto) 0.0 Immature Gran # (Auto) 0.07 H Absolute Nucleated RBC 0.00 Immature Gran % 1 H Nucleated RBC % 0 PT INR APTT Sodium 139 Potassium 3.8 Chloride 101 Carbon Dioxide 30.5 Anion Gap 8 BUN 15 Creatinine 1.0 Estim Creat Clear Calc 35.7 L eGFR > 60 BUN/Creatinine Ratio 15 Glucose 117 H Calculated Osmolality 279 Calcium 8.4 Corrected Calcium 9.1 Phosphorus 2.7 Magnesium 1.8 Total Bilirubin 0.3 AST 15 ALT 12 Alkaline Phosphatase 88 Total Protein 5.9 Albumin 3.1 L Globulin 2.8 Albumin/Globulin Ratio 1.1 L Ur Collection Type Urine Color Urine Clarity Urine pH Ur Specific Warren Urine Protein Urine Glucose (UA) Urine Ketones Urine Blood Urine Nitrite Urine Bilirubin Urine Urobilinogen (Auto) Ur Leukocyte Esterase Urine RBC Urine WBC Ur Squamous Epith Cells Urine Bacteria RSV Rapid Group A Strep Rapid Quality Measures Quality Measures none Advance care planning discussed with:: patient Assessment & Plan Assessment Current Active Medications: Generic Name Dose Route Start Last Admin Trade Name Freq PRN Reason Stop Dose Admin Acetaminophen 650 mg 08/24/24 12:08 Acetaminophen 325 Mg Tablet PO 09/23/24 12:07 Q6HR PRN FEVER >101 Albuterol/Ipratropium 3 ml 08/24/24 15:00 08/26/24 14:26 Albuterol/Ipratropium (Duoneb) Rt Mariam 3 Ml Nebu INH 09/23/24 14:59 3 ml Q4HRRT LORRI Administration Enoxaparin Sodium 40 mg 08/25/24 09:00 08/26/24 09:23 Enoxaparin Sod Inj 40 Mg/0.4 Ml Syringe SC 09/08/24 08:59 40 mg QDAY LORRI Administration Fluconazole 400 mg 08/24/24 12:15 08/26/24 09:24 Fluconazole 100 Mg Tablet PO 08/31/24 12:14 400 mg QDAY LORRI Administration Nicotine 14 mg 08/24/24 12:15 08/26/24 09:23 Nicotine Patch 14 Mg/24 Hr Patch.Td24 TOP 09/23/24 12:14 14 mg QDAY LORRI Administration Ondansetron HCl 4 mg 08/24/24 12:11 Ondansetron Inj 2 Mg/Ml Inj 2 Ml IV 09/23/24 12:10 Q6HR PRN NAUSEA OR VOMITING Protocol Pantoprazole Sodium 40 mg 08/24/24 12:15 08/26/24 09:24 Pantoprazole 40 Mg Tablet PO 09/23/24 12:14 40 mg QDAY LORRI Administration Plan Ms. Hameed is a 68-year-old female with past medical history significant for asthma, hypertension and questionable history of leukemia presents to the ED complaining of SOB. #Acute hypoxic respiratory failure #COPD exacerbation in the setting of #History of asthma #Recent Hx of coccidiomycosis, noncompliant with fluconazole - Pt states she has worsening shortness of breath and has unable to use her inhaler because of her living situation, Pt has history of smoking -Pt is not on home oxygen -Pt is saturating 95% on 3L oxygen via and nasal canulla and remained 95% saturation on room air -Pt underwent ambulatory test in the ED and per ED physician pt was desatting to 70's -Pt has history of cocci pneumonia and has been non compliant with medications Plan: -duoneds as needed, supplemental oxygen as needed -repeat cocci IgM is positive - pt is started on flucanazole #Pulmonary nodule #Liver lesion, 15mm -Chest xray evident of Pulmonary mass in the right upper lobe -Chest CT with contrast showed area of consolidation versus mass like in the right upper lobe and 15 mm right lobe liver lesion -Ordered biopsy of the lung mass, is scheduled for tomorrow -Liver lesions has been there for a few years evident on previous imaging, and is stable in size. #Primary hypertension Patient states her home medication includes amlodipine 10 mg daily however she is non compliant due to her living situation -Bp pressure is stable -Will continue to monitor blood pressure and will resume antihypertensive if blood pressure remains elevated #substance use disorder #tobacco use -Patient endorses to smoking meth. Last meth use was 2 days ago and smokes cigarettes daily -Counseled patient against drug use -nicotine patch ordered # Unconfirmed history of colon cancer and leukemia -Patient states she has a history of colon cancer and leukemia but it is unverified on chart review -Patient also declined receiving any treatments for either one of them Health Maintenance Disposition: Telemetry for observation DVT Prophylaxis: enoxaparin 40mg Qdaily stoped on 08/26 for biopsy GI Prophylaxis: Pantoprozol-40 IV Qday Diet: regular diet Lines: Peripheral lines Code status: Full Assessment and plan discussed with my senior resident Dr. Lindsey & attending physician Dr. Markie Vaz (PGY-1)- Internal medicine resident Attending Provider Attestation/Addendum I have discussed and was present for the essential components of the history, physical examination, diagnosis, and treatment plan with the resident. I agree with the patient's care as documented by the resident and amended herein by me. Moses Aden DO. Patient seen and evaluated this AM. Vital signs stable, patient afebrile, patient is excepting her medications today, presently on nasal cannula, 1 L, SpO2 94%. chest CT performed on 08/25 did again notice a dense consolidation versus a masslike area in the right upper lobe and right base as well as a 15 mm right liver lesion however this was seen in the past and was determined to be cystic. The patient is amenable to having biopsy performed however it is unlikely she will pursue outpatient treatment but I feel necessary to at least get the biopsy if she is willing. Currently scheduled for 08/27. Patient states she does not want to leave because she has nowhere to go, protective services social worker notified. Will continue to monitor closely while she is here. Although this document has been carefully reviewed, there may still be some phonetic and other typographical errors. These errors are purely grammatical due to imperfections in the software program and should not be construed in any way to compromise the substance of the patient's medical care during this visit.
[2024-08-27] VITALS (8 sets, daily range): BP systolic 116–152; BP diastolic 60–84; PULSE 83–96; RESP 18–93; TEMP 36.1–36.9; O2SAT 92–100; BMI 19.7
[2024-08-27] MEDS: ALBUTEROL/IPRATROPIUM (Duoneb) RT SOL 3 ML NEBU INH ×3 (05:23→15:25)
[2024-08-27 06:01] LABS: Basophils % (Auto) 0 % (0-2.5); Eosinophils # (Auto) 0.1 Thou/mm3 (0.0-0.5); Eosinophils % (Auto) 2 % (0-10); Hematocrit 39.1 % (36.0-46.0); Hemoglobin 11.7 g/dL (12.0-16.0); Immature Granulocytes % (Auto) 2 % (0-0); Lymphocytes # (Auto) 1.1 Thou/mm3 (1.0-4.8); Lymphocytes % (Auto) 23 % (10-50); Mean Corpuscular HGB Conc 29.9 g/dl (31.0-37.0); Mean Corpuscular Hemoglobin 29.2 pg (25.0-35.0); Mean Corpuscular Volume 98 fL (80-100); Monocytes # (Auto) 0.4 Thou/mm3 (0.0-0.8); Monocytes % (Auto) 9 % (0-12); Neutrophils % (Auto) 64 % (37-80); Nucleated Red Blood Cell % 0 /100 WBC (0); Platelet Count 265 Thou/mm3 (140-440); RDW Standard Deviation 61.7 fL (36.4-46.3); Red Blood Count 4.01 Miln/mm3 (4.00-5.20); White Blood Count 4.7 Thou/mm3 (3.6-11.0)
[2024-08-27] MEDS: ACETAMINOPHEN 325 MG TABLET 650 MG PO (06:11)
[2024-08-27 06:14] LABS: Prothrombin Time 10.5 Seconds (9.0-12.2)
[2024-08-27 06:28] LABS: Alanine Aminotransferase 12 U/L (10-49); Albumin, Serum 3.4 gm/dL (3.4-4.8); Albumin/Globulin Ratio 1.1 (1.2-2.2); Alkaline Phosphatase 92 U/L (46-116); Anion Gap 8 (7-16); Aspartate Amino Transferase 19 U/L (0-34); BUN/Creatinine Ratio 14 Ratio (12-20); Bilirubin,Total 0.3 mg/dL (0.3-1.2); Blood Urea Nitrogen 14 mg/dL (9-23); Calcium 9.1 mg/dL (8.3-10.6); Calcium (Corrected) 9.6 mg/dL (8.5-10.1); Carbon Dioxide 33.8 mMol/L (20.0-31.0); Chloride 100 mMol/L (98-107); Globulin 3.1 gm/dL (2.3-3.5); Glucose 88 mg/dL (74-106); Magnesium 1.9 mg/dL (1.6-2.6); Osmolality,Calculated 282 (275-295); Phosphorous 3.5 mg/dL (2.4-5.1); Potassium 3.9 mMol/L (3.4-5.1); Sodium 142 mMol/L (136-145); Total Protein 6.5 gm/dL (5.7-8.2); eGFR > 60 See Note
--- NOTE | 2024-08-27 08:48 | PC.NURSE ---
Charge nurse Simi consulted with Radiologist Dr. Thao regarding lung biopsy order, states no need for biopsy, procedure cancelled by
[2024-08-27] MEDS: PANTOPRAZOLE 40 MG TABLET PO (09:14)
[2024-08-27] MEDS: FLUCONAZOLE 100 MG TABLET 400 MG PO (09:14)
[2024-08-27] MEDS: NICOTINE PATCH 14 MG/24 HR PATCH.TD24 TOP (09:15)
--- NOTE | 2024-08-27 10:47 | PC.SS ---
Walkers The diagnosis creates mobility limitation that significantly impairs ability to participate in the patients activities of daily living either in their entirety, or in a reasonable time frame. Also the patient is able to safely use the walker and the patient?s mobility is sufficiently resolved with the use of the walker and cane has been ruled out.
[2024-08-27] MEDS: POLYETHYLENE GLYCOL 17 GM PACKET PO (12:14)
[2024-08-27] MEDS: SENNA TABLET 1 TAB PO (12:14)
--- NOTE | 2024-08-27 12:16 | PC.SS ---
Patient Jaki Hameed is a 68 year old female who presents to the hospital for AGRF, BRENNA. SS made [id number] contact with patient. SS introduced self, role, and reason for visit. Patient appeared alert and oriented to self, location, and situation. 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 SS was informed by Team A that patient was needing a FWW. SS submitted DME inquiry through [employer] for a FWW. [facility] will deliver at bedside. Patient reports she is able to ambulate independently and complete her own ADLs. Patient reports she is homeless and has been foir 3 months, at time of discharge patient will discharge out to the community. SS inquired about discharging to a homeless longterm, however patient reported she does not want to discharge to a longterm. SS will need to assist with transportation.
--- NOTE | 2024-08-27 15:57 | PC.SS ---
Addendum entered by Susan Mcrae 08/27/24 16:19: Crisis center was not able to accept patient, therefore patient will discharge to [facility] in [place]. SS assisted with setting up transportation with [facility] services. Original Note: SS follow up note; SS met with patient at bedside to inform her SS would be setting up transportation for her, patient reported she now wants to discharge to a nursing home, SS contacted [facility] and they interviewed patient via phone and asked to call back for an answer in 20 Min. SS contacted the [facility] in [place] and they reported they do have female beds available and patient must be there before 6PM. If Crisis center does not accept patient then SS will assist patient with transportation to [facility] in [place] at [address] [facility] in [place].
--- NOTE | 2024-08-27 17:02 | ESDS_ITS ---
Planned Discharge Date 08/27/24 DS: Providers Provider Date of admission: 08/25/24 14:57 Primary care physician: Alberto Landis PA-C Admitting Provider: Skyler Aden DO Attending Provider on Admission: Blayne Rangel MD Consults: 08/24/24 12:16 Referral Physical Therapy Routine Comment: Physician Instructions: Attending Provider on DC: Roque Vaz MD Discharging Provider: Roque Vaz MD DS: Diagnosis Problem List Completed Was Problem List Reviewed/Reconciled?: Yes Hospital Course Hospital Course Hospital course: Ms. Hameed is a 68-year-old female with past medical history significant for COPD (asthma), hypertension and history of leukemia presents to [facility] ED on 08/24/24 ED complaining of shortness of breath for couple days. Pt is a poor historian therefore unable to confirm her medical history. Patient does admit to being noncompliant with her medications due to her living situation. Pt states she is homeless and [facility] to [facility] [place]. Patient previously was admitted to the hospital for similar episode and was found to have cocci IgM positive for which fluconazole was prescribed however patient stated she never picked up the medication. Patient is admitted to the hospital for acute hypoxic respiratory failure secondary to COPD exacerbation. Patient continues to smoke cigarettes daily and use methamphetamine as urine tox is positive for methamphetamines. Patient was started on supplemental oxygen via nasal cannula which was titrated down and patient was saturating above 88% on room air. Patient's repeat cocci IgM is positive and was started on fluconazole. During her last admission in June TB was ruled out. Repeat chest x-ray showed a questionable area of masslike in the right upper lobe of the lung, and reviewed the previous imaging which described the mass to be 5 mm in size. Patient was scheduled for a biopsy however interventional radiologist reviewed all the chest x-rays and CT as well as CT with contrast and determined that this was not a mass the imaging were more consistent with either pneumonia or scar tissue due to cocci. During hospitalization patient did not have a white count and no pneumonia was noted on chest x-ray and no fever and no cough therefore patient was not started on antibiotics. CT scan also found to have stable liver lesions that had also been noted on previous admissions and CT scans. Reiterated to patient on multiple occasions for her to follow up with her PCP to follow-up on lung and liver lesions. Patient is hemodynamically and clinically stable, saturating on room air and is ready to be discharged home to self-care. Patient is strongly advised if her symptoms worsen or return to promptly return to the ED. Discharge Recommendations Take fluconazole 400 mg once daily Take all medication as prescribed Apply nicotine patch once daily and use you inhaler as needed Your pulmonary mass is most likely pneumonia/infection from cocci per master fire control technician, therefore biopsy was deferred Follow-up with PCP as outpatient within 2 weeks Hospitalization Diagnosis #Acute hypoxic respiratory failure #COPD exacerbation in the setting of #History of asthma #Recent Hx of coccidiomycosis, noncompliant with fluconazole #Pulmonary nodule- ruled out #Liver lesion, 15mm #substance use disorder #tobacco use # Unconfirmed history of colon cancer and leukemia Assessment and plan discussed with my attending physician Dr. Juan Carlos Vaz (PGY-1)- Internal medicine resident Time Spent with Patient Time attestation: Total time spent providing and/or coordinating discharge services: Time spent: Greater than 30 minutes Exam Vital Signs Temp Pulse Resp BP Pulse Ox O2 Del Method O2 Flow Rate 98.2 F 96 18 149/77 H 96 Room Air 1 08/27/24 16:00 08/27/24 16:00 08/27/24 16:00 08/27/24 16:00 08/27/24 16:00 08/27/24 16:00 08/27/24 05:25 FiO2 2 08/27/24 00:00 Narrative Exam GENERAL: A&Ox3 . Awake, Not in acute distress NEURO: no focal neurological deficits HEENT: Atraumatic, Normocephalic. mucous membranes moist. Eyes open, symmetrical, & clear HEART: Normal Heart Sounds LUNGS: Clear to auscultation with no wheezing or crackles. ABDOMEN: soft, non-distended, non-tender, bowel sounds heard, no guarding or rebound tenderness SKIN: No Rash or ecchymoses EXTREMITIES: No edema, tenderness, able to move all 4 extremities, pedal pulses palpated Discharge Plan Plan Patient Disposition: HOME (Self Care) Care Plan Goals: Take fluconazole 400 mg once daily Take all medication as prescribed Apply nicotine patch once daily and use you inhaler as needed Your pulmonary mass is most likely pneumonia/infection from cocci per master fire control technician, therefore biopsy was deferred Follow-up with PCP as outpatient within 2 weeks Prescriptions/Referrals Prescriptions/Med Rec: New nicotine 14 mg/24 hr Patch 24 Hour 14 mg top QDAY Qty: 7 0RF fluticasone propionate 220 mcg/actuation HFA aerosol inhaler 1 puff inhalation BID PRN (Reason: SOB ) Qty: 12 0RF Continued dicyclomine 20 mg tablet 20 mg PO TID PRN (Reason: abdominal pain) Qty: 20 0RF amlodipine 10 mg tablet 10 mg PO QDAY Qty: 30 0RF pantoprazole [Protonix] 40 mg tablet,delayed release (DR/EC) 40 mg PO QDAY Qty: 14 0RF montelukast 10 mg Tablet 10 mg PO QPM Qty: 30 0RF dextromethorphan-guaifenesin 5-100 mg/5 mL liquid 10 ml PO Q8H PRN (Reason: cough) Qty: 500 0RF Discontinued fluticasone propionate [Flovent HFA] 110 mcg/actuation Hfa Aerosol Inhaler 2 puff INHALATION BID PRN (Reason: Shortness Of Breath Or Wheezing) fluconazole 200 mg tablet 400 mg PO QDAY Qty: 60 2RF Referrals: Alberto Landis PA-C [Primary Care Provider] - Patient/Caregiver Discharge Instructions Education Materials: ED Pneumonia (Adult), ED How to Quit Smoking Print Language: Barbadian Stand Alone Forms: Suzan Award Info., Patient Portal Info Letter, Work/Release Restrictions Discharge Order Discharge Orders: Discharge (Routine); Ordered 08/27/24 Ordered By: Tito Lindsey Quality Discharge Quality Measures none MD Attestestation MD Attestation I have examined the patient, reviewed labs and imaging findings, discussed the case with the resident(s), and reviewed entered orders. I agree with the plan of care as outlined in this note. Over 39 minutes spent on discharge planning with patient and team. Dr. Juan Carlos MD
== END 2024-08-27 16:24 | disposition home or self-care (01) | DRG 190 ==
LOC: SERX 09:56 → SERHOLD 10:40 → S2NX 18:11
PROVIDERS: Emergency Medicine; Radiology Diagnostic Radiology; Student in an Organized Health Care Education/Training Program; Admitting Provider Student in an Organized Health Care Education/Training Program; Emergency Provider Emergency Medicine; PCP Family Medicine; Visit Provider Student in an Organized Health Care Education/Training Program
DX: J44.1 Chronic obstructive pulmonary disease with (acute) exacerbation (principal); J96.01 Acute respiratory failure with hypoxia; B38.9 Coccidioidomycosis, unspecified; Z59.00 Homelessness unspecified; F15.90 Other stimulant use, unspecified, uncomplicated; J44.0 Chronic obstructive pulmonary disease with (acute) lower respiratory infection; R11.0 Nausea; K76.9 Liver disease, unspecified; I10 Essential (primary) hypertension; F17.210 Nicotine dependence, cigarettes, uncomplicated; Z85.6 Personal history of leukemia; Z85.038 Personal history of other malignant neoplasm of large intestine; Z91.148 Patient's other noncompliance with medication regimen for other reason
CPT/HCPCS: 36415; 71045; 71260; 80053; 80307; 81001; 83735; 83880; 84100; 84484; 85025; 85610; 85730; 86635; 87400; 87634; 87651; 87811; 93306; 94640; 97162; A4649; A9270; G0378; J0456; J0696; J1650; J3475; J7030; J7040; J7050; Q9967